=== PATIENT | female | born 1970 | race Caucasian/White ===

== ENCOUNTER 2017-11-09 22:05 | Emergency (ER) | payer MEDICAID ==
[2017-11-09 22:19] VITALS: BMI 29.9
[2017-11-09] MEDS ORDERED: NS 1000 ML 1,000 ML ONE (22:42)
[2017-11-09] MEDS ORDERED: ASPIRIN PO ONE (22:47)
[2017-11-09] MEDS ORDERED: NITROSTAT SL PRN (22:47)
--- NOTE | 2017-11-09 22:52 | DR.GENAD ---
HPI - PCP Primary Care Physician: Sonya Da Silva - Complaint/Symptoms Chief Complaint Doctors Comments: Patient is complaining of xiphoid chest pain, , dull headache with numbness in her right hand for the past three hours. Mother states she has been nauseated but no vomiting, cold, cough, fever or chills. States she has been taking her medicines for her blood pressure of Losartan 100mg and metoprolol 50mg. She denies blurred vision or any recent trauma. states she is a patient of Dr. Gonzalez's sister. Chief Complaint:: Patient's mother stated that patient's B/P has been high today. Patient told mother that something wasn't right. Patient stated that her head and mouth felt funny and her right arm is numb. Self Treatment fo Chief Complaint: Patient's mother stated that they just started patient on Cozaar 100mg po daily. Patient already taking Toprol XL 50mg po. - Nurses notes reviewed Nurses Notes Review: Yes - Source History Provided: Patient, Family Member - Mode of Arrival Mode of Arrival: Ambulatory - Timing Onset of Chief Complaint: 11/09/17 Came on: Gradually - Duration Duration: Constant How lon Duration: Hours - Location Location: xiphoid chest pain - Severity Severity: Moderate - Modifying Factors Worsens:: nothing Improves:: nothing PMH - PMH Past Medical History: Yes Past Medical History: Hypertension Past Surgical History: Yes Surgical History: Other Past Surgical History Comment: Hernia Repair - Family History History of Family Medical Conditions: Yes Family Medical History: Diabetes Mellitus, [place], Coronary Artery Disease, Sudden Cardiac , Hypertension - Social History Alcohol Use: None Do you use any recreational Drugs:: No Lives With: Family Lives Where: Home - infectious screening In the last 2 months have you had wt loss of >10#?: NO Have you had fever, night sweats or hemotysis?: No Have you traveled outside the country in the last 6 months?: No Isolation: Standard ROS - Review of Systems Constitutional: No Symptoms Reported. negative: See HPI, Chills, Diaphoresis, Fever, Malaise, Weakness, Irritable, Fatigue, Loss of Appetite, Other Eyes: No Symptoms Reported. negative: See HPI, Eye Pain, Blurred Vision, Tearing, Discharge, Photophobia, Diplopia, Other ENTM: No Symptoms Reported Respiratoy: No Symptoms Reported. negative: See HPI, Productive Cough, Non- Productive Cough, Moist Cough, Dry Cough, Hacking Cough, Barking Cough, Brassy Cough, Orthopnea, Short of Breath, Stridor, Wheezing, Hemoptysis, Other Cardiovascular: No Symptoms Reported, Chest Pain. negative: See HPI, Edema, Palpitations, Syncope, Cyanosis, Skin Mottling, Other Gastrointestinal/Abdominal: No Symptoms Reported, Nausea. negative: See HPI, Abdominal Pain, Constipation, Diarrhea, Vomiting, Food Intolerance, Other Genitourinary: No Symptoms Reported. negative: See HPI, Discharge, Dysuria, Frequency, Hematuria, Pain, Bleeding, Other Neurological: No Symptoms Reported, Headache, Paresthesia (right hand). negative: See HPI, Anxiety, Depressed, Emotional Problems, Numbness, Pre- existing Deficit, Seizure, Tingling, Tremors, Weakness, Dizziness, Problems Walking, Speech Problem, Other Musculoskeletal: No Symptoms Reported Integumentary: No Symptoms Reported. negative: See HPI, Change in Color, Change in Hair/Nails, Dryness, Lesions, Lumps, Rash, Itching, Wound, Bruises, Juandice, Other Hematologic/Lymphatic: No Symptoms Reported Endocrine: No Symptoms Reported Psychiatric: No Symptoms Reported PE - Vital Signs Vitals: Temperature 98.1 F Pulse Rate 83 Respiratory Rate 20 Blood Pressure 180/103 O2 Sat by Pulse Oximetry 100 - General Limitations: No Limitations General Appearance: Alert, In No Apparent Distress, In Distress (moderate) - Head Head Exam: Normal Inspection, Atraumatic, Normocephalic - Eyes Eye exam: Normal Appearance, PERRL, EOMI. negative: Scleral Icterus, Conjunctival Injection, Nystagmus, Miosis, Mydrasis, Periorbital Swelling, Periorbital Tenderness, Other - ENT ENT Exam: Normal Exam, Normal Oropharynx, Normal External Ear Exam, Mucous Membranes Moist, TM's Normal Bilaterally External Ear Exam: Normal External Inspection. negative: Auricular Hematoma, Auricular Trauma, Mastoid Tenderness, Pain with Movement, External Tenderness, Periauricular Adenopathy, Other TM/Canal Exam: Bilateral Normal Nose Exam: Normal Nose Exam Mouth Exam: Normal Inspection. negative: Drooling, Trismus, Lip Swelling, Tongue Elevation, Tongue Swelling, Laceration, Other Throat Exam: Normal Inspection - Neck Neck Exam: Normal Inspection, Full ROM, Trachea Midline - Chest Chest Inspection: Normal Inspection, Symmetric Chest Wall Rise - Respiratory Respiratory Exam: Normal Lung Sounds Bilat Respiratory Exam: Bilateral Clear to Auscultation - Cardiovascular Cardiovascular Exam: Regular Rate, Normal Rhythm, Normal Heart Sounds - Abdominal Exam Abdominal Exam: Normal Inspection, Normal Bowel Sounds, Soft Abdominal Tenderness: negative: RUQ, RLQ, LUQ, LLQ, Epigastrium, Suprapubic, Diffuse, Mild, Moderate, Severe, Other - Extremities Extremities Exam: Normal Inspection, Full ROM, Normal Capillary Refill. negative: Tenderness, Edema, Joint Swelling, Calf Tenderness, Other - Back Back Exam: Normal Inspection, Full ROM. negative: Tenderness, (R) CVA Tenderness, (L) CVA Tenderness, Muscle Spasm, Paraspinal Tenderness, Vertebral Tenderness, Rashes, (R) Sciatic Notch Tenderness, (L) Sciatic Notch Tendern, (R ) Straight Leg Raise, (L) Straight Leg Raise, Other - Neurologic Neurological Exam: Alert, Oriented X3, CN II-XII Intact, Reflexes Normal. negative: Normal Gait (gait not tested) - Psychiatric Psychiatric Exam: Normal Affect, Normal Mood - Skin Skin Exam: Warm, Dry, Intact, Normal Color ROR - Labs Reviewed Laboratory Results Reviewed?: Yes (All labs and x-ray results reviewed and discussed with patient) Result Diagrams: 11/09/17 23:55 11/09/17 23:55 Laboratory: WBC 5.7 X10^3/uL (3.6-10.0) 11/09/17 23:55 RBC 4.69 X10^6/uL (3.5-5.4) 11/09/17 23:55 Hgb 13.0 g/dL (12.0-16.0) 11/09/17 23:55 Hct 38.5 % (36.0-47.0) 11/09/17 23:55 MCV 82.1 fL (80.0-100.0) 11/09/17 23:55 MCH 27.8 pg (27.0-34.0) 11/09/17 23:55 MCHC 33.9 g/dL (33.0-35.0) 11/09/17 23:55 RDW 13.6 % (11.6-16.5) 11/09/17 23:55 Plt Count 314 X10^3/uL (150.0-450.0) 11/09/17 23:55 MPV 6.6 fL (7.4-11.0) L 11/09/17 23:55 Neut % 55.0 % (42.0-75.0) 11/09/17 23: Lymph % 29.8 % (21.0-51.0) 11/09/17 23:55 Sac % 11.3 % (0.0-13.0) 11/09/17 23:55 Eos % 3.2 % (0.9-2.9) H 11/09/17 23:55 Baso % 0.7 % (0.2-1.0) 11/09/17 23:55 Neut # 3.2 x10^3/uL (2.2-4.8) 11/09/17 23: Lymph # 1.7 X10^3/uL (1.3-2.9) 11/09/17 23:55 Sac # 0.6 x10^3/uL (0.3-0.8) 11/09/17 23:55 Eos # 0.2 x10^3/uL (0.0-0.2) 11/09/17 23:55 Baso # 0.0 X10^3/uL (0.0-0.1) 11/09/17 23: Absolute Nucleated RBC 0.1 /100WBC 11/09/17 23:55 INR Target Range - 11/09/17 23: INR 1.06 (0.8-1.3) 11/09/17 23:55 PTT 27.1 SECONDS (22.9-36.5) 11/09/17 23:55 PTT Comment - 11/09/17 23:55 D-Dimer 496 ng/mL (0-400) H* 11/09/17 23:55 Sodium 143 mmol/L (136-145) 11/09/17 23:55 Corrected Sodium TNP 11/09/17 23:55 Potassium 3.6 mmol/L (3.5-5.1) 11/09/17 23:55 Chloride 108 mmol/L (98-107) H 11/09/17 23:55 Carbon Dioxide 23.7 mmol/L (21-32) 11/09/17 23:55 BUN 14 mg/dL (7-18) 11/09/17 23:55 Creatinine 0.84 mg/dL (0.55-1.02) 11/09/17 23:55 Est GFR (MDRD) Af Amer > 60 (>60) 11/09/17 23:55 Est GFR (MDRD) Non-Af > 60 (>60) 11/09/17 23:55 Glucose 100 mg/dL (65-99) H 11/09/17 23:55 Calcium 8.8 mg/dL (8.5-10.1) 11/09/17 23:55 Corrected Calcium TNP 11/09/17 23:55 Magnesium 1.7 mg/dL (1.7-2.9) 11/09/17 23:55 Total Bilirubin 0.40 mg/dL (0.2-1.0) 11/09/17 23:55 AST 17 Units/L (15-37) 11/09/17 23:55 ALT 18 Units/L (12-78) 11/09/17 23:55 Alkaline Phosphatase 99 Units/L (46-116) 11/09/17 23:55 Creatine Kinase 56 Units/L (26-192) 11/10/17 01:32 CK-MB (CK-2) < 1.0 ng/mL (0-4.0) 11/10/17 01:32 CK/CKMB % Calc 1.8 % (<4) 11/10/17 01:32 Troponin I < 0.02 ng/mL (0-1.5) 11/10/17 01:32 Total Protein 7.2 g/dL (6.4-8.2) 11/09/17 23:55 Albumin 3.9 g/dL (3.4-5.0) 11/09/17 23:55 Globulin 3.3 g/dL (2.5-4.5) 11/09/17 23:55 Albumin/Globulin Ratio 1.2 Ratio (1.1-2.1) 11/09/17 23:55 - XRAY XRAY Interpreted by: Radiologist (CT head: NO acute intracranial hemorrhage) XRAY Findings: CXR: No acute cardiopulmonary afnormality - EKG Rate: 57 [place]: Normal Rhythm: NSR, SB Block: None Hypertrophy: None ST: Normal, Nonsp - Diagnosis Discharge Problem: Essential hypertension Chest pain Qualifiers: Chest pain type: unspecified Qualified Code(s): R07.9 - Chest pain, unspecified - Discharge Plan Disposition: 01 HOME, SELF-CARE Condition: Stable - Follow ups/Referrals Follow ups/Referrals: SONYA DA SILVA [Primary Care Provider] - 3 days - Instructions Instructions: Hypertension, [id number], Managing Your High Blood Pressure, Chest Pain Observation
[2017-11-09] MEDS ORDERED: ASPIRIN ONE (22:54)
[2017-11-09] MEDS ORDERED: CATAPRES TAB 0.2 MG PO ONE (22:54)
[2017-11-09] MEDS ORDERED: NS 1000 ML 1,000 ML IV SCH (23:00)
--- NOTE | 2017-11-09 23:03 | RAD ---
AP Chest Indication: Chest pain Comparison: None available Findings: The trachea is midline. The cardiac silhouette is unremarkable. The lungs are clear without focal i nfiltrate or effusion. The bony thorax is unremarkable. IMPRESSION: 1. No acute cardiopulmonary abnormality. Reported By:
[2017-11-09] MEDS ORDERED: CATAPRES TAB 0.2 MG ONE (23:13)
--- NOTE | 2017-11-10 00:14 | CT ---
CT brain without contrast Indication: Headache with right hand numbness Comparison: None available Technique: Multiple axial images of the brain were obtained from the skull base to the vertex without administra tion of IV contrast. Findings: No acute intraparenchymal hemorrhage or mass can be identified. No extra-axial fluid collections are seen. No alteration in the attenuation of the brain parenchyma can be identified to suggest acute o r subacute ischemic change. The ventricular system is symmetric and nondilated. The extracranial st ructures are grossly unremarkable. IMPRESSION: 1. No acute intracranial hemorrhage. Reported By:
[2017-11-10 00:18] LABS: BASOPHILS % (AUTO) 0.7 % (0.2-1.0); EOSINOPHILS # (AUTO) 0.2 x10^3/uL (0.0-0.2); EOSINOPHILS % (AUTO) 3.2 % (0.9-2.9); HEMATOCRIT 38.5 % (36.0-47.0); LYMPHOCYTES # (AUTO) 1.7 X10^3/uL (1.3-2.9); LYMPHOCYTES % (AUTO) 29.8 % (21.0-51.0); MEAN CORPUSCULAR HEMOGLOBIN 27.8 pg (27.0-34.0); MEAN CORPUSCULAR HGB CONC 33.9 g/dL (33.0-35.0); MEAN CORPUSCULAR VOLUME 82.1 fL (80.0-100.0); MEAN PLATELET VOLUME 6.6 fL (7.4-11.0); MONOCYTES # (AUTO) 0.6 x10^3/uL (0.3-0.8); MONOCYTES % (AUTO) 11.3 % (0.0-13.0); NEUTROPHILS # (AUTO) 3.2 x10^3/uL (2.2-4.8); PLATELET COUNT 314 X10^3/uL (150.0-450.0); RED BLOOD COUNT 4.69 X10^6/uL (3.5-5.4); RED CELL DISTRIBUTION WIDTH 13.6 % (11.6-16.5); WHITE BLOOD COUNT 5.7 X10^3/uL (3.6-10.0)
[2017-11-10 00:27] LABS: BLOOD UREA NITROGEN 14 mg/dL (7-18); CALCIUM 8.8 mg/dL (8.5-10.1); CARBON DIOXIDE 23.7 mmol/L (21-32); CHLORIDE 108 mmol/L (98-107); CREATININE 0.84 mg/dL (0.55-1.02); SODIUM 143 mmol/L (136-145); TROPONIN I < 0.02 ng/mL (0-1.5); eGFR BLACK RACES > 60 (>60); eGFR NON BLACK RACES > 60 (>60)
[2017-11-10 00:30] LABS: ALANINE AMINOTRANSFERASE 18 Units/L (12-78); ALBUMIN 3.9 g/dL (3.4-5.0); ALKALINE PHOSPHATASE 99 Units/L (46-116); ASPARTATE AMINO TRANSFERASE 17 Units/L (15-37); CKMB % 1.8 % (<4); CREATINE KINASE 56 Units/L (26-192); CREATINE KINASE MB < 1.0 ng/mL (0-4.0); MAGNESIUM 1.7 mg/dL (1.7-2.9); TOTAL PROTEIN 7.2 g/dL (6.4-8.2)
[2017-11-10 02:24] LABS: CREATINE KINASE MB < 1.0 ng/mL (0-4.0)
[2017-11-10 02:38] LABS: CKMB % 1.8 % (<4); CREATINE KINASE 56 Units/L (26-192); TROPONIN I < 0.02 ng/mL (0-1.5)
[2017-11-10 05:10] VITALS: BP 133/79
== END 2017-11-10 03:16 | disposition home or self-care (01) ==
LOC: ER 22:25
DX: R07.89 Other chest pain (principal); I10 Essential (primary) hypertension
CPT/HCPCS: 36415; 70450; 71045; 80053; 82550; 82553; 83735; 84484; 85025; 85378; 85610; 85730; 93005; 93010; 99283; A4222

== ENCOUNTER 2017-11-18 00:35 | Emergency (ER) | payer MEDICAID ==
[2017-11-18 00:43] VITALS: BMI 29.6
[2017-11-18] MEDS ORDERED: TORADOL 60 MG VIAL IM ONE (01:24)
--- NOTE | 2017-11-18 01:25 | DR.GENAD ---
HPI - PCP Primary Care Physician: anish gruber - HPI Comment HPI Comment: PATIENTS BP RECENTLY RUNNING HIGH. TONIGHT SHE HAD HEADACHE, BP CHECK, IT WAS HIGH. HERE FOR EVALUATION. TOOK HER MEDS PRESCRIBE. - Complaint/Symptoms Chief Complaint Doctors Comments: ELEVATED BP WITH HEADACHE TONIGHT. Chief Complaint:: Mother reports high blood pressure; taken blood pressure medications as prescribed. Mother reports blood pressure at home was 198/140. Patient reports headache. Patient is reporting numbness and tingling to mouth, weakness, and a generalized malaise. - Nurses notes reviewed Nurses Notes Review: Yes - Source History Provided: Parent - Mode of Arrival Mode of Arrival: Wheelchair - Timing Onset of Chief Complaint: 11/18/17 Came on: Suddenly - Duration Duration: Constant Duration: Days - Severity Severity: Moderate PMH - PMH Past Medical History: Yes Past Medical History: Hypertension Past Surgical History: Yes Surgical History: Other Past Surgical History Comment: Breast reduction; Hernia repair - Family History History of Family Medical Conditions: Yes Family Medical History: Diabetes Mellitus, [place], Coronary Artery Disease, Sudden Cardiac , Hypertension - Social History Type of Tobacco Use: None Alcohol Use: None Do you use any recreational Drugs:: No Lives With: Family Lives Where: Home - infectious screening In the last 2 months have you had wt loss of >10#?: NO Have you had fever, night sweats or hemotysis?: No Have you traveled outside the country in the last 6 months?: No Isolation: Standard ROS - Review of Systems Constitutional: No Symptoms Reported. negative: Chills, Fever, Weakness, Fatigue, Loss of Appetite Eyes: No Symptoms Reported. negative: Eye Pain, Discharge ENTM: negative: Ear Pain, Nose Discharge, Nose Congestion, Throat Pain Respiratoy: No Symptoms Reported Cardiovascular: No Symptoms Reported Gastrointestinal/Abdominal: No Symptoms Reported Genitourinary: No Symptoms Reported Neurological: Headache Musculoskeletal: No Symptoms Reported Integumentary: No Symptoms Reported Hematologic/Lymphatic: No Symptoms Reported Endocrine: No Symptoms Reported All Other Systems: Reviewed and Negative PE - Vital Signs Vitals: Temperature 98.2 F Pulse Rate [Left Brachial] 74 Pulse Rate 79 Respiratory Rate 22 Blood Pressure [Left Arm] 138/82 Blood Pressure 194/99 O2 Sat by Pulse Oximetry 96 - General Limitations: No Limitations General Appearance: Alert - Head Head Exam: Normal Inspection - Eyes Eye exam: Normal Appearance - ENT ENT Exam: Normal External Ear Exam External Ear Exam: Normal External Inspection TM/Canal Exam: Bilateral Normal Nose Exam: Normal Nose Exam Mouth Exam: Normal Inspection Throat Exam: Normal Inspection - Neck Neck Exam: Trachea Midline - Chest Chest Inspection: Symmetric Chest Wall Rise - Respiratory Respiratory Exam: Normal Lung Sounds Bilat Respiratory Exam: Bilateral Clear to Auscultation - Cardiovascular Cardiovascular Exam: Regular Rate, Normal Rhythm, Normal Heart Sounds - Abdominal Exam Abdominal Exam: Normal Bowel Sounds, Soft. negative: Tenderness - Extremities Extremities Exam: Normal Inspection - Back Back Exam: Normal Inspection - Neurologic Neurological Exam: Alert, Oriented X3 - Psychiatric Psychiatric Exam: Normal Affect, Normal Mood - Skin Skin Exam: Normal Color MDM - Additional Information Additional Information Obtained From: Family - Differential Diagnosis Differential Diagnosis: HTN, HEADACHE Course - Treatment Treatment: SEE ORDERS. - Education/Counseling Education/Counseling: Patient, Family, Education Educated On: Treatment, Diagnosis, Needs for Follow Up - Diagnosis Discharge Problem: Essential hypertension Headache Qualifiers: Headache type: unspecified Headache chronicity pattern: acute headache Intractability: intractable Qualified Code(s): R51 - Headache - Discharge Plan Disposition: 01 HOME, SELF-CARE Condition: Stable Prescriptions: Clonidine HCl [CATAPRES 0.1 MG TAB *] 0.1 mg PO DAILY PRN #30 tab PRN Reason: - Follow ups/Referrals Follow ups/Referrals: ANISH GRUBER [Primary Care Provider] - 3 days - Instructions Instructions: Hypertension, [id number], Managing Your High Blood Pressure Additional Instructions: RETURN TO ED IF WORSE. BP CHECK DAILY AND CHART AND TAKE TO YOUR DOCTOR.
[2017-11-18] MEDS ORDERED: TORADOL 60 MG VIAL ONE (01:27)
[2017-11-18] MEDS ORDERED: NIFEDIPINE CAP 10 MG PO ONE (02:16)
[2017-11-18] MEDS ORDERED: NIFEDIPINE CAP 10 MG ONE (02:17)
[2017-11-18 03:17] VITALS: BP 138/82
== END 2017-11-18 03:28 | disposition home or self-care (01) ==
LOC: ER 00:35
DX: I10 Essential (primary) hypertension (principal); R51 Headache
CPT/HCPCS: 96372; 99282; J1885

== ENCOUNTER 2019-08-25 12:46 | Inpatient (IN) ==
[2019-08-25 12:50] VITALS: BMI 28.3
[2019-08-25] MEDS ORDERED: NS 1/2 1000 ML IV 1,000 ML IV ONE (12:51)
--- NOTE | 2019-08-25 13:25 | DR.DIZZY ---
HPI Time seen Time Seen by Provider: 08/25/19 13:25 PCP Primary Care Physician: SELAM Complaint Chief Complaint:: PT. C/O NAUSEA, ABDOMINAL PAIN, DIZZINESS AND DARK URINE. Nurses Notes Reviewed Nurses Notes Review: Yes Source History Provided: Patient Mode of Arrival Mode of Arrival: Ambulatory Timing Onset of Chief Complaint: 08/24/19 PMH PMH Past Medical History: Yes Past Medical History: Hypertension Past Surgical History: Yes Surgical History: Other Family History History of Family Medical Conditions: Yes Family Medical History: Diabetes Mellitus, [place], Coronary Artery Disease, Sudden Cardiac and Hypertension Social History Does patient currently use any type of tobacco product: No Have you used tobacco products in the last 12 months: No Type of Tobacco Use: None Does any household member use tobacco: No Alcohol Use: None Do you use any recreational Drugs:: No Lives With: Mom Lives Where: Home infectious screening In the last 2 months have you had wt loss of >10#?: NO Have you had fever, night sweats or hemotysis?: No Have you traveled outside the country in the last 6 months?: No Isolation: Standard ROS Review of Systems Constitutional: No Symptoms Reported and See HPI Eyes: No Symptoms Reported and See HPI ENTM: No Symptoms Reported and See HPI Respiratoy: No Symptoms Reported and See HPI Cardiovascular: No Symptoms Reported and See HPI Gastrointestinal/Abdominal: No Symptoms Reported and See HPI Genitourinary: No Symptoms Reported and See HPI Neurological: No Symptoms Reported and See HPI Musculoskeletal: No Symptoms Reported and See HPI Integumentary: No Symptoms Reported and See HPI Hematologic/Lymphatic: No Symptoms Reported and See HPI Endocrine: No Symptoms Reported and See HPI Psychiatric: No Symptoms Reported and See HPI All Other Systems: Reviewed and Negative PE Vital Signs Vitals: Temperature 97.2 F Pulse Rate [Standing] 64 Pulse Rate [Sitting] 83 Pulse Rate [Lying] 78 Pulse Rate 87 Respiratory Rate 35 Blood Pressure [Left Arm] 138/82 Blood Pressure [Standing] 88/50 Blood Pressure [Sitting] 111/64 Blood Pressure [Lying] 105/61 Blood Pressure 94/62 O2 Sat by Pulse Oximetry 94 ROR Labs Reviewed Result Diagrams: 08/25/19 13:12 08/25/19 13:12 Laboratory: WBC 8.4 X10^3/uL (3.6-10.0) 08/25/19 13:12 RBC 4.82 X10^6/uL (3.5-5.4) 08/25/19 13:12 Hgb 13.6 g/dL (12.0-16.0) 08/25/19 13:12 Hct 40.4 % (36.0-47.0) 08/25/19 13:12 MCV 83.8 fL (80.0-100.0) 08/25/19 13:12 MCH 28.2 pg (27.0-34.0) 08/25/19 13:12 MCHC 33.7 g/dL (33.0-35.0) 08/25/19 13:12 RDW 13.3 % (11.6-16.5) 08/25/19 13:12 Plt Count 447 X10^3/uL (150.0-450.0) 08/25/19 13:12 MPV 7.2 fL (7.4-11.0) L 08/25/19 13:12 Neut % (Auto) 78.0 % (42.0-75.0) H 08/25/19 13:12 Lymph % (Auto) 14.0 % (21.0-51.0) L 08/25/19 13:12 [place] % (Auto) 4.9 % (0.0-13.0) 08/25/19 13:12 Eos % (Auto) 2.5 % (0.9-2.9) 08/25/19 13:12 Baso % (Auto) 0.6 % (0.2-1.0) 08/25/19 13:12 Neut # (Auto) 6.5 x10^3/uL (2.2-4.8) H 08/25/19 13:12 Lymph # (Auto) 1.2 X10^3/uL (1.3-2.9) L 08/25/19 13:12 [place] # (Auto) 0.4 x10^3/uL (0.3-0.8) 08/25/19 13:12 Eos # (Auto) 0.2 x10^3/uL (0.0-0.2) 08/25/19 13:12 Baso # (Auto) 0.0 X10^3/uL (0.0-0.1) 08/25/19 13:12 Absolute Nucleated RBC 0.0 /100WBC 08/25/19 13:12 Sodium 142 mmol/L (136-145) 08/25/19 13:12 Corrected Sodium TNP 08/25/19 13:12 Potassium 3.7 mmol/L (3.5-5.1) 08/25/19 13:12 Chloride 104 mmol/L (98-107) 08/25/19 13:12 Carbon Dioxide 25.4 mmol/L (21-32) 08/25/19 13:12 BUN 26 mg/dL (7-18) H 08/25/19 13:12 Creatinine 1.44 mg/dL (0.55-1.02) H 08/25/19 13:12 Est GFR (MDRD) Af Amer 50 (>60) L 08/25/19 13:12 Est GFR (MDRD) Non-Af 42 (>60) L 08/25/19 13:12 Glucose 106 mg/dL (65-99) H 08/25/19 13:12 Lactic Acid 2.5 mmol/L (0.4-2.0) H 08/25/19 13:12 Calcium 9.0 mg/dL (8.5-10.1) 08/25/19 13:12 Corrected Calcium 9.7 mg/dL (8.5-10.1) 08/25/19 13:12 Total Bilirubin 0.40 mg/dL (0.2-1.0) 08/25/19 13:12 AST 43 Units/L (15-37) H 08/25/19 13:12 ALT 24 Units/L (12-78) 08/25/19 13:12 Alkaline Phosphatase 118 Units/L (46-116) H 08/25/19 13:12 Creatine Kinase 23 Units/L (26-192) L 08/25/19 13:12 CK-MB (CK-2) < 1.0 ng/mL (0-4.0) 08/25/19 13:12 CK/CKMB % Calc 4.4 % (<4) 08/25/19 13:12 Troponin I < 0.02 ng/mL (0-1.5) 08/25/19 13:12 C-Reactive Protein 45.40 mg/L (0-3.0) H 08/25/19 13:12 Total Protein 8.0 g/dL (6.4-8.2) 08/25/19 13:12 Albumin 3.1 g/dL (3.4-5.0) L 08/25/19 13:12 Globulin 4.9 g/dL (2.5-4.5) H 08/25/19 13:12 Albumin/Globulin Ratio 0.6 Ratio (1.1-2.1) L 08/25/19 13:12 Amylase 77 Units/L (25-115) 08/25/19 13:12 Lipase 172 Units/L (73-393) 08/25/19 13:12 Specimen Type Clean catch urine 08/25/19 15:23 Urine Color Yellow (YELLOW) 08/25/19 15:23 Urine Appearance Clear (CLEAR) 08/25/19 15:23 Urine pH 6.0 (5.0 - 8.0) 08/25/19 15:23 Ur Specific [place] 1.020 (1.000-1.030) 08/25/19 15:23 Urine Protein 2+ (NEGATIVE) 08/25/19 15:23 Urine Glucose (UA) Negative (NEGATIVE) 08/25/19 15:23 Urine Ketones Negative (NEGATIVE) 08/25/19 15:23 Urine Occult Blood Negative (NEGATIVE) 08/25/19 15:23 Urine Nitrite Negative (NEGATIVE) 08/25/19 15:23 Urine Bilirubin Negative (NEGATIVE) 08/25/19 15:23 Urine Urobilinogen Normal (NORMAL) 08/25/19 15:23 Ur Leukocyte Esterase Negative (NEGATIVE) 08/25/19 15:23 Urine RBC None seen /HPF (0-3) 08/25/19 15:23 Urine WBC 0-2 /HPF (0-5) 08/25/19 15:23 Ur Squamous Epith Cells Few /HPF (NEGATIVE) 08/25/19 15:23 Amorphous Sediment 1+ /HPF (NEGATIVE) 08/25/19 15:23 Urine Bacteria Trace /HPF (NEGATIVE) 08/25/19 15:23 Ur Culture Indicated? No/not indicated 08/25/19 15:23 Opioid Opioid Risk Tool Age (Johnny box if 16-45): No History of Preadolescent Sexual Abuse: No Total: 0 Total Score Risk Category: Low Risk Copyright: Kanu CASTANEDA predicting aberrant behaviors
[2019-08-25] MEDS ORDERED: NS 1000 ML 1,000 ML IV ONE ×2 (14:02→15:04)
[2019-08-25 14:13] LABS: BASOPHILS % (AUTO) 0.6 % (0.2-1.0); EOSINOPHILS # (AUTO) 0.2 x10^3/uL (0.0-0.2); EOSINOPHILS % (AUTO) 2.5 % (0.9-2.9); HEMATOCRIT 40.4 % (36.0-47.0); HEMOGLOBIN 13.6 g/dL (12.0-16.0); LYMPHOCYTES # (AUTO) 1.2 X10^3/uL (1.3-2.9); MEAN CORPUSCULAR HEMOGLOBIN 28.2 pg (27.0-34.0); MEAN CORPUSCULAR HGB CONC 33.7 g/dL (33.0-35.0); MEAN CORPUSCULAR VOLUME 83.8 fL (80.0-100.0); MEAN PLATELET VOLUME 7.2 fL (7.4-11.0); MONOCYTES # (AUTO) 0.4 x10^3/uL (0.3-0.8); MONOCYTES % (AUTO) 4.9 % (0.0-13.0); NEUTROPHILS # (AUTO) 6.5 x10^3/uL (2.2-4.8); PLATELET COUNT 447 X10^3/uL (150.0-450.0); RED BLOOD COUNT 4.82 X10^6/uL (3.5-5.4); RED CELL DISTRIBUTION WIDTH 13.3 % (11.6-16.5); WHITE BLOOD COUNT 8.4 X10^3/uL (3.6-10.0)
[2019-08-25 14:33] LABS: ALANINE AMINOTRANSFERASE 24 Units/L (12-78); ALBUMIN 3.1 g/dL (3.4-5.0); ALKALINE PHOSPHATASE 118 Units/L (46-116); AMYLASE 77 Units/L (25-115); ASPARTATE AMINO TRANSFERASE 43 Units/L (15-37); BLOOD UREA NITROGEN 26 mg/dL (7-18); CARBON DIOXIDE 25.4 mmol/L (21-32); CHLORIDE 104 mmol/L (98-107); CKMB % 4.4 % (<4); COR CA(FOR HYPOALB) 9.7 mg/dL (8.5-10.1); CREATINE KINASE 23 Units/L (26-192); CREATINE KINASE MB < 1.0 ng/mL (0-4.0); CREATININE 1.44 mg/dL (0.55-1.02); LIPASE 172 Units/L (73-393); SODIUM 142 mmol/L (136-145); TROPONIN I < 0.02 ng/mL (0-1.5); eGFR NON BLACK RACES 42 (>60)
[2019-08-25 14:58] LABS: LACTIC ACID 2.5 mmol/L (0.4-2.0)
[2019-08-25] MEDS ORDERED: NS 1000 ML 1,000 ML ONE (15:04)
[2019-08-25 15:35] LABS: BILIRUBIN,URINE NEGATIVE (NEGATIVE); BLOOD/HEMOGLOBIN,URINE NEGATIVE (NEGATIVE); GLUCOSE, URINE NEGATIVE (NEGATIVE); KETONES,URINE NEGATIVE (NEGATIVE); LEUKOCYTE ESTERASE ,URINE NEGATIVE (NEGATIVE); NITRITES,URINE NEGATIVE (NEGATIVE); PROTEIN,URINE 2+ (NEGATIVE); UROBILINOGEN,URINE NORMAL (NORMAL)
[2019-08-25 15:42] LABS: AMORPHOUS SEDIMENT,UR 1+ /HPF (NEGATIVE); APPEARANCE,URINE CLEAR (CLEAR); BACTERIA,URINE TRACE /HPF (NEGATIVE); COLOR,URINE YELLOW (YELLOW); RBC,URINE NONE SEEN /HPF (0-3); SQUAMOUS EPITHELIAL CELL,UR FEW /HPF (NEGATIVE)
[2019-08-25] MEDS ORDERED: ROCEPHIN VIAL 1 GRAM IVP ONE (17:29)
[2019-08-25] MEDS ORDERED: ROCEPHIN VIAL 1 GRAM ONE (17:43)
--- NOTE | 2019-08-25 17:57 | CT ---
CT abdomen and pelvis without contrast Indication: Acute epigastric pain Comparison: None available Technique: Multiple axial images of the abdomen and pelvis were obtained from the lung bases to the pubic symphysis without the administration of IV contrast. Coronal and sagittal reformatted images were also provided. Dose reduction techniques including automated exposure control (AEC) and adjustment of mA and kV were utilized. Findings: Overall sensitivity in detection of solid organ injury, mass or inflammatory change along with vascular injury or mesenteric hematoma is severely limited given lack of IV contrast administration. The lung bases demonstrate ground-glass opacities within the left lower lobe on axial image 1suspicious for developing1 infiltrate. Given limitations of a noncontrast examination no focal hepatic lesion is identified. The gallbladder, bile ducts, spleen, pancreas and adrenal glands are normal. Neither kidney demonstrates evidence of nephrolithiasis, hydronephrosis or mass. Upper GI tract demonstrates no evidence of mass or obstruction. Urinary bladder is normal. The uterus contains a large exophytic fibroid projecting from the anterior lower uterine segment. No adnexal mass. The rectum and colon are normal. The appendix is normal. No pelvic free fluid or adenopathy. Abdominal aorta is normal in caliber. Review of bone windows demonstrates no acute osseous abnormality. Impression: 1.No acute inflammatory process identified within the abdomen or pelvis given limitations of a noncontrast examination. 2. Hazy opacity within the left lower lobe, clinical correlation is needed as a developing infiltrate in this location is not excluded. 3. Large fibroid projecting from the anterior wall the lower uterine segment. 4.Additional incidental, nonacute findings as described above. IMPRESSION: Reported By:
[2019-08-25] MEDS: DUONEB 0.5 MG/3 MG NEB SCH ×2 (18:25→20:33)
[2019-08-25] MEDS ORDERED: SALINE 3% 15 ML NEB TX NEB ONE (18:25)
[2019-08-25] MEDS ORDERED: COLACE CAP 100 MG PO PRN (19:49)
[2019-08-25] MEDS: ZITHROMAX INJ 500 MG VIAL 250 MG in D5W 250 ML IV 250 ML IV SCH (20:00)
[2019-08-25] MEDS: NS 1000 ML 1,000 ML IV SCH (20:45)
[2019-08-25 23:19] LABS: CKMB % 4.8 % (<4); CREATINE KINASE 21 Units/L (26-192); CREATINE KINASE MB < 1.0 ng/mL (0-4.0); TROPONIN I < 0.02 ng/mL (0-1.5)
[2019-08-26 06:12] LABS: BASOPHILS % (AUTO) 0.5 % (0.2-1.0); EOSINOPHILS # (AUTO) 0.1 x10^3/uL (0.0-0.2); EOSINOPHILS % (AUTO) 1.3 % (0.9-2.9); HEMATOCRIT 35.9 % (36.0-47.0); LYMPHOCYTES # (AUTO) 1.1 X10^3/uL (1.3-2.9); LYMPHOCYTES % (AUTO) 12.3 % (21.0-51.0); MEAN CORPUSCULAR HEMOGLOBIN 28.2 pg (27.0-34.0); MEAN CORPUSCULAR HGB CONC 33.5 g/dL (33.0-35.0); MEAN CORPUSCULAR VOLUME 84.3 fL (80.0-100.0); MEAN PLATELET VOLUME 6.6 fL (7.4-11.0); MONOCYTES # (AUTO) 0.4 x10^3/uL (0.3-0.8); MONOCYTES % (AUTO) 3.8 % (0.0-13.0); NEUTROPHILS # (AUTO) 7.6 x10^3/uL (2.2-4.8); NEUTROPHILS % (AUTO) 82.1 % (42.0-75.0); PLATELET COUNT 416 X10^3/uL (150.0-450.0); RED BLOOD COUNT 4.25 X10^6/uL (3.5-5.4); RED CELL DISTRIBUTION WIDTH 13.5 % (11.6-16.5); WHITE BLOOD COUNT 9.3 X10^3/uL (3.6-10.0)
[2019-08-26 06:26] LABS: LACTIC ACID 2.1 mmol/L (0.4-2.0)
[2019-08-26 06:37] LABS: ALANINE AMINOTRANSFERASE 17 Units/L (12-78); ALBUMIN 2.6 g/dL (3.4-5.0); ALKALINE PHOSPHATASE 97 Units/L (46-116); ASPARTATE AMINO TRANSFERASE 44 Units/L (15-37); BLOOD UREA NITROGEN 16 mg/dL (7-18); CALCIUM 7.5 mg/dL (8.5-10.1); CARBON DIOXIDE 23.3 mmol/L (21-32); CHLORIDE 107 mmol/L (98-107); CKMB % 3.9 % (<4); COR CA(FOR HYPOALB) 8.6 mg/dL (8.5-10.1); CREATINE KINASE 26 Units/L (26-192); CREATINE KINASE MB < 1.0 ng/mL (0-4.0); CREATININE 1.17 mg/dL (0.55-1.02); MAGNESIUM 1.5 mg/dL (1.7-2.9); SODIUM 143 mmol/L (136-145); TOTAL PROTEIN 6.6 g/dL (6.4-8.2); TROPONIN I < 0.02 ng/mL (0-1.5); eGFR NON BLACK RACES 53 (>60)
[2019-08-26] MEDS ORDERED: K-RIDER 10 MEQ/NS 100 ML 10 MEQ/100 ML BAG IV PRN (06:45)
[2019-08-26] MEDS ORDERED: POTASSIUM CHLORIDE LIQ 20 MEQ UDC PO PRN (06:45)
[2019-08-26] MEDS ORDERED: POTASSIUM CHL 60 MEQ/NS 0.45% 500 ML IV PRN (06:45)
[2019-08-26] MEDS ORDERED: POTASSIUM CHL 40 MEQ/NS 0.45% 500 ML IV PRN (06:45)
--- NOTE | 2019-08-26 06:52 | RAD ---
HISTORY: Chest pain Study: Single view chest Comparison: 11/09/2017 Findings: Lung volumes are reduced. No infiltrate, effusion or pneumothorax identified. The cardiac and mediastinal contours are within normal limits. The soft tissues are unremarkable. IMPRESSION: 1. No acute cardiopulmonary abnormality. Reported By:
[2019-08-26] MEDS: ROCEPHIN VIAL 1 GRAM 1 G in NS 100 ML IV + SPIKE MINIBAG* 100 ML IV SCH (09:52)
[2019-08-26] MEDS: NS 1000 ML 1,000 ML IV SCH ×2 (10:01→20:40)
[2019-08-26] MEDS ORDERED: PHENERGAN TAB 25 MG PO PRN (11:01)
[2019-08-26] MEDS: ZITHROMAX INJ 500 MG VIAL 250 MG in D5W 250 ML IV 250 ML IV SCH (11:53)
[2019-08-26] MEDS: ZANTAC PO SCH ×2 (12:00→20:40)
--- NOTE | 2019-08-26 12:21 | DR.H&P ---
H&P - History & Physical for Day of: H&P Date: 08/25/19 - Chief Complaint Chief Complaint: NAUSEA, ABDOMINAL PAIN, DARK URINE, SHORTNESS OF BREATH, AND DIZZINESS - History of Present Illness History of Present Illness: IS A 48 YEAR OLD PATIENT OF OURS WHO PRESENTED TO THE ER WITH COMPLAINTS OF NAUSEA, ABDOMINAL PAIN, DARK URINE, SHORTNESS OF BREATH, AND DIZZINESS. SYMPTOMS REPORTEDLY STARTED ONE DAY PRIOR. SHE HAS BEEN TAKING CEFDINIR 300MG PO BID AT HOME SINCE 08/20 FOR BRONCHITIS. FAMILY REPORTS THAT SHE HAD AN OUTPATIENT ULTRASOUND OF THE NECK DUE TO RIGHT SIDED LYMPHADENOPATHY. RESULTS REVEALED AN ENLARGED RIGHT CERVIAL LYMPH NODE AND BILATERAL PARTIALLY CALCIFIED THYROID NODULES. ON ARRIVAL TO THE ER, VITALS WERE 97.2-102-22-95%-85/51. LABS WERE OBTAINED. ABNORMAL LAB VALUES INCLUDE THE FOLLOWING: BUN 26, CREATININE 1.44, GLUCOSE 106, LACTIC ACID 2.5, AST 43, ALK PHOS 118, CREATINE KINASE 23, CRP 45.40, ALBUMIN 3.1, GLOBULIN 4.9. URINALYSIS REVEALED WBC 0-2 WITH TRACE BACTERIA. BLOOD CLUTURES OBTAINED. AN ABDOMEN/PELVIS CT WITH CONTRAST WAS OBTAINED AND REVEALED: No acute inflammatory process identified within the abdomen or pelvis given limitations of a non-contrast examination. Hazy opacity within the left lower lobe, clinical correlation is needed as a developing infiltrate in this location is not excluded. Large fibroid projecting from the anterior wall the lower uterine segment. AN EKG REVEALED: SINUS RHYTHM WITH HR 87. SHE WAS GIVEN A NORMAL SALINE BOLUS X 2 AND GIVEN ROCEPHIN 1G IV X 1. SHE WAS ADMITTED FOR FURTHER EVALUATION AND TREATMENT OF HYPOTENSION, DIZZINESS, ABDOMINAL PAIN, AND BRONCHITIS. SHE WAS STARTED ON AZITHROMYCIN 250MG IV DAILY, ROCEPHIN 1G IV DAILY, RESPIRATORY TX, AND NS AT 150ML/HR. WE WILL FOLLOW UP WITH AM LABS AND CHEST XRAY AND CONTINUE TO MONITOR. - Past Medical History Past Medical History: Hypertension - Past Surgical History Surgical History: Other (EYE SURGERY, EAR SURGERY, HERNIA REPAIR, BREAST REDUCTION ) - Family History Family Medical History: Diabetes Mellitus, [place], Coronary Artery Disease, Sudden Cardiac , Hypertension - Social History Does patient currently use any type of tobacco product: No Have you used tobacco products in the last 12 months: No Type of Tobacco Use: None Does any household member use tobacco: No Alcohol Use: None Drug Use: None - Medications Home Medications: bacitracin Allergy (Verified 11/18/17 01:15) ciprofloxacin [From Cipro] Allergy (Verified 11/09/17 22:21) codeine Allergy (Verified 11/18/17 01:15) levofloxacin [From Levaquin] Allergy (Verified 11/18/17 01:15) montelukast [From Singulair] Allergy (Verified 11/18/17 01:15) neomycin Allergy (Verified 11/18/17 01:15) polymyxin B Allergy (Verified 11/18/17 01:15) sulfamethoxazole [From Bactrim] Allergy (Verified 11/18/17 01:15) trimethoprim [From Bactrim] Allergy (Verified 11/18/17 01:15) Wasp Venom Protein Allergy (Uncoded 11/18/17 01:15) CONTINUE taking the following medications cetirizine 10 mg PO HS 08/26/19 [History] losartan-hydrochlorothiazide 1 tab PO DAILY 08/26/19 [History] metoprolol succinate 50 mg PO HS 08/26/19 [History] promethazine 25 mg PO Q4-6H PRN 08/26/19 [History] ranitidine HCl 150 mg PO BID 08/26/19 [History] - Review of Systems Constitutional: Weakness Eyes: No Symptoms Reported ENT: No Symptoms Reported Respiratory: Cough, Shortness of Breath Cardiovascular: Light Headedness Gastrointestinal: Nausea, Abdominal Pain Genitourinary: No Symptoms Reported Musculoskeletal: No Symptoms Reported Skin: No Symptoms Reported Neurological: Weakness - Physical Exam Vital Signs: Temperature 99.0 F Pulse Rate [Apical] 101 Pulse Rate [Standing] 64 Pulse Rate [Sitting] 83 Pulse Rate [Lying] 78 Pulse Rate 101 Respiratory Rate 24 Blood Pressure [Left Arm] 108/62 Blood Pressure [Standing] 88/50 Blood Pressure [Sitting] 111/64 Blood Pressure [Lying] 105/61 Blood Pressure 115/64 O2 Sat by Pulse Oximetry 96 Oriented: Normal Eyes: Normal Ear: Normal Nose: Normal Throat: Normal Respiratory: Diminished Throughout Cardiovascular: Normal : Normal Auscultation: Bowel Sounds: Normal Palpation: Normal Tenderness: Diffuse, Mild Skin: Normal Musculoskeletal: Normal Psychiatric: Normal Mood Description: Calm Affect: Normal Speech Pattern: Clear - Assessment/Plan (1) Abdominal pain Qualifiers: Abdominal location: generalized Qualified Code(s): R10.84 - Generalized abdominal pain Status: Acute (2) Bronchitis Status: Acute Plan: IV ANTIBIOTICS, RESPIRATORY TX, CONTINUE TO MONITOR (3) Hypotension Qualifiers: Hypotension type: unspecified hypotension type Qualified Code(s): I95.9 - Hypotension, unspecified Status: Acute Plan: IV FLUIDS, CONTINUE TO MONITOR (4) Near syncope Status: Acute - Allergies Allergies/Adverse Reactions: Allergies Allergy/AdvReac Type Severity Reaction Status Date / Time bacitracin Allergy Verified 11/18/17 01:15 ciprofloxacin [From Cipro] Allergy Verified 11/09/17 22:21 codeine Allergy Verified 11/18/17 01:15 levofloxacin [From Levaquin] Allergy Verified 11/18/17 01:15 montelukast [From Singulair] Allergy Verified 11/18/17 01:15 neomycin Allergy Verified 11/18/17 01:15 polymyxin B Allergy Verified 11/18/17 01:15 sulfamethoxazole Allergy Verified 11/18/17 01:15 [From Bactrim] trimethoprim [From Bactrim] Allergy Verified 11/18/17 01:15 Wasp Venom Protein Allergy Uncoded 11/18/17 01:15
--- NOTE | 2019-08-26 15:57 | US ---
History: Enlarged thyroid Study: Ultrasound of the thyroid Comparison: None Findings: The right lobe measures 3.94 x 1.7 x 1.3 cm. The left lobe measures 4.1 x 1.43 x 1.31 cm. The isthmus measures 2.8 mm thickness. No adenopathy is demonstrated. There are 2 heterogeneous solid right thyroid nodules centrally with the largest measuring 1.7 x 0.81 x 0.56 cm and the other measuring 7.5 x 3.4 x 6.6 mm. There is specular echoes within these nodules suggesting calcification. There is a left thyroid nodule with calcifications inferiorly measuring 1.5 x 0.71 x 1.05 cm. There is some vascularity in this lesion. There is no adenopathy demonstrated. Impression: Normal overall sized thyroid gland with bilateral solid nodules with coarse calcification. Recommend six-month follow-up. Reported By:
[2019-08-26] MEDS: TYLENOL 325 MG TAB PO PRN (19:38)
[2019-08-26] MEDS: MICRO K EXTEN CAP 10 MEQ PO PRN (20:41)
[2019-08-26] MEDS: ZyrTEC TAB 10 MG PO SCH (20:41)
[2019-08-26] MEDS: MAGNESIUM SULFATE 1 GRAM/100 mL PREMIX 1 GM/100 ML BAG IV PRN ×2 (20:41→21:57)
[2019-08-26] MEDS: DUONEB 0.5 MG/3 MG NEB PRN (21:08)
[2019-08-27] MEDS: NS 1000 ML 1,000 ML IV SCH ×3 (00:31→22:59)
[2019-08-27] MEDS: DUONEB 0.5 MG/3 MG NEB PRN ×2 (05:50→21:30)
[2019-08-27 06:06] LABS: BASOPHILS % (AUTO) 0.2 % (0.2-1.0); EOSINOPHILS # (AUTO) 0.1 x10^3/uL (0.0-0.2); EOSINOPHILS % (AUTO) 1.3 % (0.9-2.9); HEMATOCRIT 36.2 % (36.0-47.0); HEMOGLOBIN 12.1 g/dL (12.0-16.0); LYMPHOCYTES # (AUTO) 0.9 X10^3/uL (1.3-2.9); LYMPHOCYTES % (AUTO) 10.5 % (21.0-51.0); MEAN CORPUSCULAR HEMOGLOBIN 28.2 pg (27.0-34.0); MEAN CORPUSCULAR HGB CONC 33.5 g/dL (33.0-35.0); MEAN CORPUSCULAR VOLUME 84.1 fL (80.0-100.0); MEAN PLATELET VOLUME 6.4 fL (7.4-11.0); MONOCYTES # (AUTO) 0.3 x10^3/uL (0.3-0.8); NEUTROPHILS # (AUTO) 7.2 x10^3/uL (2.2-4.8); PLATELET COUNT 455 X10^3/uL (150.0-450.0); RED CELL DISTRIBUTION WIDTH 13.6 % (11.6-16.5); WHITE BLOOD COUNT 8.5 X10^3/uL (3.6-10.0)
[2019-08-27 06:17] LABS: ALANINE AMINOTRANSFERASE 14 Units/L (12-78); ALBUMIN 2.4 g/dL (3.4-5.0); ALKALINE PHOSPHATASE 101 Units/L (46-116); ASPARTATE AMINO TRANSFERASE 40 Units/L (15-37); BLOOD UREA NITROGEN 7 mg/dL (7-18); CALCIUM 7.5 mg/dL (8.5-10.1); CHLORIDE 110 mmol/L (98-107); COR CA(FOR HYPOALB) 8.8 mg/dL (8.5-10.1); CREATININE 0.92 mg/dL (0.55-1.02); MAGNESIUM 2.3 mg/dL (1.7-2.9); SODIUM 143 mmol/L (136-145); TOTAL PROTEIN 6.6 g/dL (6.4-8.2); eGFR NON BLACK RACES > 60 (>60)
[2019-08-27] MEDS: K-DUR TAB 20 MEQ PO PRN (07:14)
[2019-08-27] MEDS: TYLENOL 325 MG TAB PO PRN (07:23)
--- NOTE | 2019-08-27 08:00 | CT ---
HISTORY: Thyroid nodules Study: CT soft tissue neck with contrast Comparison: None Technique: Multiple images of the neck were obtained after the administration of IV contrast. Dose reduction techniques including Automated Exposure Control (AEC) and adjustment of mA and kV were utilized. Findings: The visualized intracranial structures appear normal. The skull base and cervical spine are intact. The facial bones appear grossly intact. The visualized paranasal sinuses and mastoid air cells are clear. There are bilateral ground-glass infiltrates visualized in the upper lung zones. The aerodigestive structures appear normal. The prevertebral soft tissues and paraspinal soft tissues are unremarkable. The epiglottis and laryngeal structures appear normal. There are mildly enlarged bilateral supraclavicular and mediastinal lymph nodes present. The largest left supraclavicular lymph node measures 2.6 x 1.1 cm. Largest anterior mediastinal node measures 1.4 x 0.9 cm. Largest right paratracheal node measures 1 x 1 cm. No evidence of abscess. The carotid, parotid, parapharyngeal, wellness trainer, and retropharyngeal spaces appear normal. The pharyngeal mucosal surfaces appear grossly normal. Thyroid gland is normal in size with small bilateral hypodense nodules that are better characterized by ultrasound. Carotid bifurcations appear normal. IMPRESSION: 1. Mildly enlarged bilateral supraclavicular and mediastinal lymph nodes as described of uncertain etiology. 2. Bilateral upper lobe ground-glass lung infiltrates. 3. Normal sized thyroid gland with small bilateral nodules as described on ultrasound just 1 day prior. Reported By:
[2019-08-27] MEDS: ROCEPHIN VIAL 1 GRAM 1 G in NS 100 ML IV + SPIKE MINIBAG* 100 ML IV SCH (08:41)
[2019-08-27] MEDS: ZANTAC PO SCH ×2 (08:42→20:40)
[2019-08-27] MEDS: ZITHROMAX INJ 500 MG VIAL 250 MG in D5W 250 ML IV 250 ML IV SCH (09:22)
[2019-08-27 10:32] LABS: ABG ALLEN TEST POS; ABG BASE EXCESS -2.2 mmol/L (-2.0-2.0); ABG HCO3 20.4 mmol/L (22-26)
[2019-08-27] MEDS ORDERED: SALINE 3% 15 ML NEB TX NEB ONE (10:42)
[2019-08-27] MEDS: ZOSYN VIAL 4.5 GRAMS 4.5 G in NS 100 ML IV + SPIKE MINIBAG* 100 ML IV SCH ×3 (11:01→22:59)
[2019-08-27] MEDS: ZOVIRAX TOP SCH ×2 (11:01→17:26)
[2019-08-27] MEDS: SOLU-Medrol 40 MG VIAL IVP SCH ×3 (11:02→22:59)
[2019-08-27] MEDS: ZyrTEC TAB 10 MG PO SCH (20:40)
[2019-08-28] MEDS: ZOVIRAX TOP SCH ×3 (02:10→17:27)
[2019-08-28] MEDS: NS 1000 ML 1,000 ML IV SCH ×3 (05:15→23:38)
[2019-08-28] MEDS: ZOSYN VIAL 4.5 GRAMS 4.5 G in NS 100 ML IV + SPIKE MINIBAG* 100 ML IV SCH ×3 (05:54→21:01)
[2019-08-28] MEDS: SOLU-Medrol 40 MG VIAL IVP SCH ×3 (05:54→21:01)
[2019-08-28 06:23] LABS: BASOPHILS % (AUTO) 0.2 % (0.2-1.0); HEMATOCRIT 32.7 % (36.0-47.0); LYMPHOCYTES # (AUTO) 0.6 X10^3/uL (1.3-2.9); MEAN CORPUSCULAR HEMOGLOBIN 28.2 pg (27.0-34.0); MEAN CORPUSCULAR HGB CONC 33.6 g/dL (33.0-35.0); MEAN CORPUSCULAR VOLUME 83.9 fL (80.0-100.0); MEAN PLATELET VOLUME 6.5 fL (7.4-11.0); MONOCYTES # (AUTO) 0.1 x10^3/uL (0.3-0.8); MONOCYTES % (AUTO) 2.4 % (0.0-13.0); NEUTROPHILS % (AUTO) 85.4 % (42.0-75.0); PLATELET COUNT 432 X10^3/uL (150.0-450.0); RED CELL DISTRIBUTION WIDTH 13.6 % (11.6-16.5); WHITE BLOOD COUNT 4.6 X10^3/uL (3.6-10.0)
[2019-08-28 06:37] LABS: ALANINE AMINOTRANSFERASE 16 Units/L (12-78); ALBUMIN 2.2 g/dL (3.4-5.0); ALKALINE PHOSPHATASE 89 Units/L (46-116); ASPARTATE AMINO TRANSFERASE 42 Units/L (15-37); BLOOD UREA NITROGEN 12 mg/dL (7-18); CALCIUM 7.2 mg/dL (8.5-10.1); CARBON DIOXIDE 21.6 mmol/L (21-32); CHLORIDE 114 mmol/L (98-107); COR CA(FOR HYPOALB) 8.6 mg/dL (8.5-10.1); COR NA(FOR HYPERGLY) 147 mmol/L (136-145); CREATININE 0.89 mg/dL (0.55-1.02); SODIUM 146 mmol/L (136-145); TOTAL PROTEIN 6.5 g/dL (6.4-8.2); eGFR NON BLACK RACES > 60 (>60)
[2019-08-28] MEDS ORDERED: FLONASE NASAL SPRAY ENOSTRIL ONE (09:11)
[2019-08-28] MEDS: ZANTAC PO SCH ×2 (09:20→20:47)
[2019-08-28] MEDS: FLONASE NASAL SPRAY ENOSTRIL SCH (09:20)
--- NOTE | 2019-08-28 09:49 | CT ---
CT facial bones without contrast Indication: Headache with fever Comparison: None available Technique: Multiple axial images of the facial structures were obtained from the mandible to superior portions of the orbits. Dose reduction techniques including automated exposure control (AEC) and adjustment of mA and kV were utilized. Findings: The visualized paranasal sinuses appear unremarkable without significant mucosal thickening or air-fluid levels. The mandible as well as the surrounding bony structures appear unremarkable. The visualized portions of the orbits as well as the globe within the right and left orbit are unremarkable in their CT appearance. IMPRESSION: Negative exam. Reported By:
[2019-08-28] MEDS: DUONEB 0.5 MG/3 MG NEB PRN (12:10)
[2019-08-28] MEDS: ZyrTEC TAB 10 MG PO SCH (20:47)
[2019-08-29] MEDS: ZOVIRAX TOP SCH ×3 (02:09→18:00)
[2019-08-29] MEDS: NS 1000 ML 1,000 ML IV SCH (02:10)
[2019-08-29] MEDS: SOLU-Medrol 40 MG VIAL IVP SCH (05:13)
[2019-08-29] MEDS: ZOSYN VIAL 4.5 GRAMS 4.5 G in NS 100 ML IV + SPIKE MINIBAG* 100 ML IV SCH ×3 (05:13→21:09)
[2019-08-29 05:23] LABS: BASOPHILS % (AUTO) 0.4 % (0.2-1.0); HEMATOCRIT 31.6 % (36.0-47.0); HEMOGLOBIN 10.6 g/dL (12.0-16.0); LYMPHOCYTES # (AUTO) 0.8 X10^3/uL (1.3-2.9); MEAN CORPUSCULAR HEMOGLOBIN 28.2 pg (27.0-34.0); MEAN CORPUSCULAR HGB CONC 33.6 g/dL (33.0-35.0); MEAN PLATELET VOLUME 6.6 fL (7.4-11.0); MONOCYTES # (AUTO) 0.4 x10^3/uL (0.3-0.8); MONOCYTES % (AUTO) 3.3 % (0.0-13.0); NEUTROPHILS # (AUTO) 11.6 x10^3/uL (2.2-4.8); NEUTROPHILS % (AUTO) 90.3 % (42.0-75.0); PLATELET COUNT 545 X10^3/uL (150.0-450.0); RED BLOOD COUNT 3.76 X10^6/uL (3.5-5.4); RED CELL DISTRIBUTION WIDTH 13.8 % (11.6-16.5); WHITE BLOOD COUNT 12.8 X10^3/uL (3.6-10.0)
[2019-08-29 05:33] LABS: ALANINE AMINOTRANSFERASE 16 Units/L (12-78); ALBUMIN 2.1 g/dL (3.4-5.0); ALKALINE PHOSPHATASE 76 Units/L (46-116); ASPARTATE AMINO TRANSFERASE 36 Units/L (15-37); BLOOD UREA NITROGEN 13 mg/dL (7-18); CALCIUM 6.8 mg/dL (8.5-10.1); CARBON DIOXIDE 19.5 mmol/L (21-32); COR CA(FOR HYPOALB) 8.3 mg/dL (8.5-10.1); COR NA(FOR HYPERGLY) 150 mmol/L (136-145); CREATININE 0.91 mg/dL (0.55-1.02); eGFR NON BLACK RACES > 60 (>60)
[2019-08-29 05:34] LABS: PLATELET MORPHOLOGY COMMENT NORMAL (NORMAL)
[2019-08-29 05:36] LABS: CHLORIDE 119 mmol/L (98-107); SODIUM 150 mmol/L (136-145)
[2019-08-29] MEDS: KLOR-CON PO PRN (06:26)
[2019-08-29] MEDS: DUONEB 0.5 MG/3 MG NEB PRN ×2 (08:30→20:27)
[2019-08-29] MEDS: FLONASE NASAL SPRAY ENOSTRIL SCH (08:33)
[2019-08-29] MEDS: ZANTAC PO SCH ×2 (08:33→20:43)
[2019-08-29] MEDS ORDERED: TOPROL XL PO SCH (11:00)
[2019-08-29] MEDS ORDERED: NS 1/2 1000 ML IV 1,000 ML IV ONE ×2 (11:13→17:14)
[2019-08-29] MEDS: NS 1/2 1000 ML IV 1,000 ML IV PRN ×2 (11:21→17:48)
[2019-08-29] MEDS: ZyrTEC TAB 10 MG PO SCH (20:43)
[2019-08-29] MEDS: COZAAR PO SCH (21:08)
[2019-08-30] MEDS ORDERED: NS 1/2 1000 ML IV 1,000 ML IV ONE ×2 (00:31→06:35)
[2019-08-30] MEDS: NS 1/2 1000 ML IV 1,000 ML IV PRN ×2 (00:43→06:39)
[2019-08-30] MEDS: ZOVIRAX TOP SCH ×3 (02:31→17:40)
[2019-08-30 05:02] LABS: BASOPHILS % (AUTO) 0.1 % (0.2-1.0); EOSINOPHILS # (AUTO) 0.1 x10^3/uL (0.0-0.2); EOSINOPHILS % (AUTO) 0.4 % (0.9-2.9); HEMATOCRIT 32.9 % (36.0-47.0); HEMOGLOBIN 11.1 g/dL (12.0-16.0); MEAN CORPUSCULAR HEMOGLOBIN 28.1 pg (27.0-34.0); MEAN CORPUSCULAR HGB CONC 33.7 g/dL (33.0-35.0); MEAN CORPUSCULAR VOLUME 83.3 fL (80.0-100.0); MEAN PLATELET VOLUME 6.2 fL (7.4-11.0); MONOCYTES # (AUTO) 0.6 x10^3/uL (0.3-0.8); MONOCYTES % (AUTO) 4.6 % (0.0-13.0); NEUTROPHILS # (AUTO) 12.2 x10^3/uL (2.2-4.8); NEUTROPHILS % (AUTO) 87.9 % (42.0-75.0); PLATELET COUNT 636 X10^3/uL (150.0-450.0); RED BLOOD COUNT 3.95 X10^6/uL (3.5-5.4); RED CELL DISTRIBUTION WIDTH 13.6 % (11.6-16.5); WHITE BLOOD COUNT 13.9 X10^3/uL (3.6-10.0)
[2019-08-30 05:15] LABS: ALANINE AMINOTRANSFERASE 19 Units/L (12-78); ALBUMIN 2.4 g/dL (3.4-5.0); ALKALINE PHOSPHATASE 86 Units/L (46-116); ASPARTATE AMINO TRANSFERASE 35 Units/L (15-37); BLOOD UREA NITROGEN 9 mg/dL (7-18); CALCIUM 6.7 mg/dL (8.5-10.1); CARBON DIOXIDE 21.4 mmol/L (21-32); CHLORIDE 111 mmol/L (98-107); SODIUM 145 mmol/L (136-145); TOTAL PROTEIN 6.4 g/dL (6.4-8.2); eGFR NON BLACK RACES > 60 (>60)
[2019-08-30 05:18] LABS: PLATELET MORPHOLOGY COMMENT NORMAL (NORMAL)
[2019-08-30] MEDS: ZOSYN VIAL 4.5 GRAMS 4.5 G in NS 100 ML IV + SPIKE MINIBAG* 100 ML IV SCH ×3 (05:18→21:36)
[2019-08-30] MEDS: KLOR-CON PO PRN (05:34)
--- NOTE | 2019-08-30 07:47 | RAD ---
Examination: Chest, PA and lateral views History: SOB, cervical lymphadenopathy Comparison 08/26/2019 Findings: The heart is upper normal in size. There is a diffuse bilateral interstitial prominence in the lungs which has increased slightly since prior. There is no definite consolidation, mass or pleural fluid. Mediastinal adenopathy described on recent neck CT not definitely identified on this study. Impression: Interval increase in interstitial prominence since 08/26/2019 is suggestive of developing perivascular edema, less likely inflammatory process. Reported By:
[2019-08-30] MEDS: XOPENEX 1.25 MG/3 ML NEBULE NEB PRN (08:58)
[2019-08-30] MEDS: ZANTAC PO SCH ×2 (09:51→20:23)
[2019-08-30] MEDS: COZAAR PO SCH (09:51)
[2019-08-30] MEDS: TYLENOL 325 MG TAB PO PRN (09:56)
[2019-08-30] MEDS: FLONASE NASAL SPRAY ENOSTRIL SCH (10:05)
[2019-08-30] MEDS ORDERED: LASIX IVP ONE (12:41)
[2019-08-30] MEDS ORDERED: LASIX ONE (15:07)
[2019-08-30] MEDS: VSL#3 PO SCH (15:21)
[2019-08-30] MEDS: BUTT CREAM (COMPOUND) TOP PRN (15:26)
[2019-08-30] MEDS ORDERED: NS 500 ML IV 500 ML IV ONE (20:00)
[2019-08-30] MEDS: TOPROL XL PO SCH (20:23)
[2019-08-30] MEDS: ZyrTEC TAB 10 MG PO SCH (20:23)
[2019-08-31] MEDS: ZOVIRAX TOP SCH ×3 (01:20→17:31)
[2019-08-31 05:19] LABS: BASOPHILS % (AUTO) 0.3 % (0.2-1.0); EOSINOPHILS # (AUTO) 0.2 x10^3/uL (0.0-0.2); EOSINOPHILS % (AUTO) 1.8 % (0.9-2.9); HEMATOCRIT 32.9 % (36.0-47.0); HEMOGLOBIN 11.4 g/dL (12.0-16.0); LYMPHOCYTES # (AUTO) 0.7 X10^3/uL (1.3-2.9); MEAN CORPUSCULAR HEMOGLOBIN 28.2 pg (27.0-34.0); MEAN CORPUSCULAR HGB CONC 34.6 g/dL (33.0-35.0); MEAN CORPUSCULAR VOLUME 81.6 fL (80.0-100.0); MEAN PLATELET VOLUME 6.3 fL (7.4-11.0); MONOCYTES # (AUTO) 0.3 x10^3/uL (0.3-0.8); NEUTROPHILS # (AUTO) 8.2 x10^3/uL (2.2-4.8); NEUTROPHILS % (AUTO) 86.9 % (42.0-75.0); PLATELET COUNT 627 X10^3/uL (150.0-450.0); RED BLOOD COUNT 4.04 X10^6/uL (3.5-5.4); RED CELL DISTRIBUTION WIDTH 13.5 % (11.6-16.5); WHITE BLOOD COUNT 9.4 X10^3/uL (3.6-10.0)
[2019-08-31 05:24] LABS: ALANINE AMINOTRANSFERASE 26 Units/L (12-78); ALBUMIN 2.5 g/dL (3.4-5.0); ALKALINE PHOSPHATASE 85 Units/L (46-116); ASPARTATE AMINO TRANSFERASE 39 Units/L (15-37); BLOOD UREA NITROGEN 8 mg/dL (7-18); CALCIUM 7.1 mg/dL (8.5-10.1); CARBON DIOXIDE 21.6 mmol/L (21-32); CHLORIDE 109 mmol/L (98-107); COR CA(FOR HYPOALB) 8.3 mg/dL (8.5-10.1); CREATININE 0.91 mg/dL (0.55-1.02); SODIUM 145 mmol/L (136-145); TOTAL PROTEIN 6.7 g/dL (6.4-8.2); eGFR NON BLACK RACES > 60 (>60)
[2019-08-31 05:46] LABS: PLATELET MORPHOLOGY COMMENT NORMAL (NORMAL)
[2019-08-31] MEDS: ZOSYN VIAL 4.5 GRAMS 4.5 G in NS 100 ML IV + SPIKE MINIBAG* 100 ML IV SCH ×3 (06:07→21:14)
[2019-08-31] MEDS: KLOR-CON PO PRN (06:08)
[2019-08-31] MEDS: K-DUR TAB 20 MEQ PO PRN ×2 (06:40→13:08)
[2019-08-31] MEDS: VSL#3 PO SCH (09:37)
[2019-08-31] MEDS: COZAAR PO SCH (09:38)
[2019-08-31] MEDS: ZANTAC PO SCH ×2 (09:38→20:48)
[2019-08-31] MEDS: FLONASE NASAL SPRAY ENOSTRIL SCH (09:39)
[2019-08-31] MEDS ORDERED: LASIX IVP ONE (10:15)
[2019-08-31] MEDS: LOMOTIL PO PRN ×2 (11:40→20:48)
[2019-08-31] MEDS ORDERED: LASIX IVP NR (12:00)
--- NOTE | 2019-08-31 12:48 | RAD ---
HISTORY: Pulmonary edema Study: PA and lateral views of the chest. Comparison: 11/09/2017 Findings: The cardiomediastinal silhouette is normal. Streaky bibasilar opacities which may represent edema versus atypical infection. No effusion. Osseous structures demonstrate no acute abnormality. IMPRESSION: 1. Bilateral edema like pattern. Reported By:
[2019-08-31] MEDS: ZyrTEC TAB 10 MG PO SCH (20:48)
[2019-08-31] MEDS: TOPROL XL PO SCH (20:48)
[2019-08-31] MEDS: BUTT CREAM (COMPOUND) TOP PRN (20:51)
[2019-09-01] MEDS: ZOVIRAX TOP SCH ×3 (02:21→18:44)
[2019-09-01] MEDS: ZOSYN VIAL 4.5 GRAMS 4.5 G in NS 100 ML IV + SPIKE MINIBAG* 100 ML IV SCH ×3 (05:24→21:55)
[2019-09-01 06:16] LABS: BASOPHILS # (AUTO) 0.1 X10^3/uL (0.0-0.1); BASOPHILS % (AUTO) 0.7 % (0.2-1.0); EOSINOPHILS # (AUTO) 0.6 x10^3/uL (0.0-0.2); EOSINOPHILS % (AUTO) 4.2 % (0.9-2.9); HEMATOCRIT 39.2 % (36.0-47.0); HEMOGLOBIN 13.1 g/dL (12.0-16.0); LYMPHOCYTES # (AUTO) 0.9 X10^3/uL (1.3-2.9); LYMPHOCYTES % (AUTO) 6.4 % (21.0-51.0); MEAN CORPUSCULAR HEMOGLOBIN 27.8 pg (27.0-34.0); MEAN CORPUSCULAR HGB CONC 33.4 g/dL (33.0-35.0); MEAN CORPUSCULAR VOLUME 83.4 fL (80.0-100.0); MEAN PLATELET VOLUME 6.1 fL (7.4-11.0); MONOCYTES # (AUTO) 0.4 x10^3/uL (0.3-0.8); MONOCYTES % (AUTO) 2.6 % (0.0-13.0); NEUTROPHILS # (AUTO) 12.6 x10^3/uL (2.2-4.8); NEUTROPHILS % (AUTO) 86.1 % (42.0-75.0); PLATELET COUNT 778 X10^3/uL (150.0-450.0); RED CELL DISTRIBUTION WIDTH 13.7 % (11.6-16.5); WHITE BLOOD COUNT 14.6 X10^3/uL (3.6-10.0)
[2019-09-01 06:25] LABS: ALANINE AMINOTRANSFERASE 39 Units/L (12-78); ALBUMIN 2.9 g/dL (3.4-5.0); ALKALINE PHOSPHATASE 179 Units/L (46-116); ASPARTATE AMINO TRANSFERASE 52 Units/L (15-37); BLOOD UREA NITROGEN 11 mg/dL (7-18); CALCIUM 7.9 mg/dL (8.5-10.1); CARBON DIOXIDE 21.7 mmol/L (21-32); CHLORIDE 109 mmol/L (98-107); COR CA(FOR HYPOALB) 8.8 mg/dL (8.5-10.1); CREATININE 1.27 mg/dL (0.55-1.02); SODIUM 146 mmol/L (136-145); TOTAL PROTEIN 7.9 g/dL (6.4-8.2); eGFR NON BLACK RACES 48 (>60)
--- NOTE | 2019-09-01 06:46 | RAD ---
HISTORY: Shortness of breath Study: Chest AP portable Comparison: 08/31/2019, 08/30/2019 Findings: The heart is upper limits normal in size. The ivory are normal. Interstitial lung changes are present not significantly different from the prior examination with the exception of some improvement in the lingular segment of the left upper lobe. This may represent resolving edema versus infection. No pleural effusions are identified. The bony thorax is unremarkable. IMPRESSION: Improving interstitial lung changes in the lingula Persistent interstitial lung changes in the remainder of the lung milligan Reported By:
[2019-09-01 07:07] LABS: PLATELET MORPHOLOGY COMMENT NORMAL (NORMAL)
[2019-09-01] MEDS: MICRO K EXTEN CAP 10 MEQ PO PRN ×2 (11:03→11:09)
[2019-09-01] MEDS: VSL#3 PO SCH (11:03)
[2019-09-01] MEDS: ZANTAC PO SCH (11:04)
[2019-09-01] MEDS: FLONASE NASAL SPRAY ENOSTRIL SCH (11:05)
[2019-09-01] MEDS: COZAAR PO SCH (11:06)
[2019-09-01] MEDS: PROCALAMINE 3 % 1,000 ML IV SCH (18:46)
--- NOTE | 2019-09-01 19:46 | PCM.PROG ---
Progress Note - Progress Note for Day of Date of Exam: 08/27/19 - Subjective Subjective: WAS ADMITTED FOR FURTHER EVALUATION AND TREATMENT OF HYPOTENSION, DIZZINESS, ABDOMINAL PAIN, AND BRONCHITIS. TODAY, SHE IS ALERT AND ORIENTED, LYING IN BED ON MORNING ROUNDS. SHE CONTINUES WITH COMPLAINTS OF SHORTNESS OF BREATH, ABDOMINAL PAIN, AND COUGH. ON EXAMINATION, SHE CONTINUES WITH RIGHT SIDED LYMPHADENOPATHY. HEART IS REGULAR IN RATE AND RHYTHM. BILATERAL LUNGS ARE NOTED WITH DIMINISHED LUNG SOUNDS THROUGHOUT. ABDOMEN IS ROUND, SOFT, AND NON-TENDER WITH NORMAL BOWEL SOUNDS NOTED IN ALL QUADRANTS. HER VITALS THIS MORNING ARE: 102.0-98-34-93%NC-133/78. LABS WERE OBTAINED. ABNORMAL LAB VALUES INCLUDE THE FOLLOWING: PLT COUNT 455, CHLORIDE 110, GLUCOSE 103, CALCIUM 7.5, AST 40, ALBUMIN 2.4. BLOOD CULTURES ARE PENDING. A THYROID US WAS OBTAINED YESTERDAY AND REVEALED: Normal overall sized thyroid gland with bilateral solid nodules with coarse calcification. Recommend six-month follow-up. A SOFT TISSUE NECK CT WAS OBTAINED YESTERDAY AND REVEALED: Mildly enlarged bilateral supraclavicular and mediastinal lymph nodes as described of uncertain etiology. Bilateral upper lobe ground-glass lung infiltrates. Normal sized thyroid gland with small bilateral nodules as described on ultrasound just 1 day prior. SHE IS CURRENTLY RECEIVING AZITHROMYCIN 250MG IV DAILY, ROCEPHIN 1G IV DAILY, RESPIRATORY TX, AND NS AT 150ML/HR. WE WILL DISCONTINUE THE AZITHROMYCIN AND ROCEPHIN TODAY. WE WILL START IV ZOSYN AND SOLU-MEDROL 40MG IV Q8H FOR TREATMENT OF PNEUMONIA. WE WILL OBTAIN AN ABG. WE PLAN TO FOLLOW UP WITH AM LABS AND CONTINUE TO MONITOR. - Past Medical Family Social History Past Med/Fam/Surg Hx: No changes since H&P Allergies: Allergies bacitracin Allergy (Verified 11/18/17 01:15) ciprofloxacin [From Cipro] Allergy (Verified 11/09/17 22:21) codeine Allergy (Verified 11/18/17 01:15) levofloxacin [From Levaquin] Allergy (Verified 11/18/17 01:15) montelukast [From Singulair] Allergy (Verified 11/18/17 01:15) neomycin Allergy (Verified 11/18/17 01:15) polymyxin B Allergy (Verified 11/18/17 01:15) sulfamethoxazole [From Bactrim] Allergy (Verified 11/18/17 01:15) trimethoprim [From Bactrim] Allergy (Verified 11/18/17 01:15) Wasp Venom Protein Allergy (Uncoded 11/18/17 01:15) - Review of Systems ROS: No change since H&P - Vital Signs and I&O's Vital Signs: Temperature 98.6 F Pulse Rate [Apical] 96 Pulse Rate [Standing] 64 Pulse Rate [Sitting] 83 Pulse Rate [Lying] 78 Pulse Rate 114 Respiratory Rate 18 Blood Pressure [Right Arm] 96/56 Blood Pressure [Left Arm] 134/89 Blood Pressure [Standing] 88/50 Blood Pressure [Sitting] 111/64 Blood Pressure [Lying] 105/61 Blood Pressure 144/88 O2 Sat by Pulse Oximetry 93 Intake and Output: Intake & Output 08/30/19 08/31/19 09/01/19 09/02/19 11:59 11:59 11:59 11:59 Intake Total 3321 / 3321 1120 / 1120 1570 / 1570 480 / 480 Output Total 1250 / 1250 1350 / 1350 Balance 2070 / 2070 -230 / -230 1570 / 1570 480 / 480 - Physical Exam Oriented: Normal Eyes: Normal Ear: Normal Nose: Normal Throat: Normal Respiratory: Generalized, Diminished Cardiovascular: Normal : Normal Auscultation: Bowel Sounds: Normal Palpation: Normal Tenderness: Diffuse, Mild Skin: Normal Musculoskeletal: Normal Psychiatric: Normal Mood Description: Calm Affect: Normal Speech Pattern: Clear, Appropriate - Laboratory and Diagnostics Result Diagrams: 09/01/19 05:40 09/01/19 05:40 Labs: 08/27/19 07:44 Blood Blood Culture - Final 08/27/19 07:32 Blood Blood Culture - Final 08/25/19 14:20 Blood Blood Culture - Final 08/25/19 14:35 Blood Blood Culture - Final Laboratory WBC 14.6 X10^3/uL (3.6-10.0) H 09/01/19 05:40 RBC 4.70 X10^6/uL (3.5-5.4) 09/01/19 05:40 Hgb 13.1 g/dL (12.0-16.0) 09/01/19 05:40 Hct 39.2 % (36.0-47.0) 09/01/19 05:40 MCV 83.4 fL (80.0-100.0) 09/01/19 05:40 MCH 27.8 pg (27.0-34.0) 09/01/19 05:40 MCHC 33.4 g/dL (33.0-35.0) 09/01/19 05:40 RDW 13.7 % (11.6-16.5) 09/01/19 05:40 Plt Count 778 X10^3/uL (150.0-450.0) H 09/01/19 05:40 Plt Count Comment Increased (ADEQUATE) A 09/01/19 05:40 MPV 6.1 fL (7.4-11.0) L 09/01/19 05:40 Neut % (Auto) 86.1 % (42.0-75.0) H 09/01/19 05:40 Lymph % (Auto) 6.4 % (21.0-51.0) L 09/01/19 05:40 [place] % (Auto) 2.6 % (0.0-13.0) 09/01/19 05:40 Eos % (Auto) 4.2 % (0.9-2.9) H 09/01/19 05:40 Baso % (Auto) 0.7 % (0.2-1.0) 09/01/19 05:40 Neut # (Auto) 12.6 x10^3/uL (2.2-4.8) H 09/01/19 05:40 Lymph # (Auto) 0.9 X10^3/uL (1.3-2.9) L 09/01/19 05:40 [place] # (Auto) 0.4 x10^3/uL (0.3-0.8) 09/01/19 05:40 Eos # (Auto) 0.6 x10^3/uL (0.0-0.2) H 09/01/19 05:40 Baso # (Auto) 0.1 X10^3/uL (0.0-0.1) 09/01/19 05:40 Absolute Nucleated RBC 0.9 /100WBC 09/01/19 05:40 Total Counted 100 09/01/19 05:40 Neutrophils % (Manual) 88 % (39-76) H 09/01/19 05:40 Lymphocytes % (Manual) 7 % (13-43) L 09/01/19 05:40 Monocytes % (Manual) 3 % (4-9) L 09/01/19 05:40 Eosinophils % (Manual) 2 % (0-6) 09/01/19 05:40 Plt Morphology Comment Normal (NORMAL) 09/01/19 05:40 RBC Morphology Normal (NORMAL) 09/01/19 05:40 Sample Site Rra 08/27/19 10:29 ABG pH 7.470 (7.35-7.45) H 08/27/19 10:29 ABG pCO2 28.0 mmHg (35.0-45.0) L 08/27/19 10:29 ABG pO2 64.0 mmHg (80.0-100.0) L 08/27/19 10:29 ABG HCO3 20.4 mmol/L (22-26) L 08/27/19 10:29 ABG O2 Saturation 93.0 % (90-100) 08/27/19 10:29 ABG Base Excess -2.2 mmol/L (-2.0-2.0) L 08/27/19 10:29 Chon Test Pos 08/27/19 10:29 A-a Gradient 101.0 mmHg 08/27/19 10:29 FiO2 28.0 08/27/19 10:29 Blood Gas Comments Pt [place] eb 08/27/19 10:29 Sodium 146 mmol/L (136-145) H 09/01/19 05:40 Corrected Sodium TNP 09/01/19 05:40 Potassium 3.5 mmol/L (3.5-5.1) 09/01/19 05:40 Chloride 109 mmol/L (98-107) H 09/01/19 05:40 Carbon Dioxide 21.7 mmol/L (21-32) 09/01/19 05:40 BUN 11 mg/dL (7-18) 09/01/19 05:40 Creatinine 1.27 mg/dL (0.55-1.02) H 09/01/19 05:40 Est GFR (MDRD) Af Amer 58 (>60) L 09/01/19 05:40 Est GFR (MDRD) Non-Af 48 (>60) L 09/01/19 05:40 Glucose 99 mg/dL (65-99) 09/01/19 05:40 Lactic Acid 1.8 mmol/L (0.4-2.0) 08/27/19 07:32 Calcium 7.9 mg/dL (8.5-10.1) L 09/01/19 05:40 Corrected Calcium 8.8 mg/dL (8.5-10.1) 09/01/19 05:40 Magnesium 2.0 mg/dL (1.7-2.9) 08/29/19 04:27 Total Bilirubin 0.80 mg/dL (0.2-1.0) 09/01/19 05:40 AST 52 Units/L (15-37) H 09/01/19 05:40 ALT 39 Units/L (12-78) 09/01/19 05:40 Alkaline Phosphatase 179 Units/L (46-116) H 09/01/19 05:40 Creatine Kinase 26 Units/L (26-192) 08/26/19 05:45 CK-MB (CK-2) < 1.0 ng/mL (0-4.0) 08/26/19 05:45 CK/CKMB % Calc 3.9 % (<4) 08/26/19 05:45 Troponin I < 0.02 ng/mL (0-1.5) 08/26/19 05:45 C-Reactive Protein 45.40 mg/L (0-3.0) H 08/25/19 13:12 Total Protein 7.9 g/dL (6.4-8.2) 09/01/19 05:40 Albumin 2.9 g/dL (3.4-5.0) L 09/01/19 05:40 Globulin 5.0 g/dL (2.5-4.5) H 09/01/19 05:40 Albumin/Globulin Ratio 0.6 Ratio (1.1-2.1) L 09/01/19 05:40 Amylase 77 Units/L (25-115) 08/25/19 13:12 Lipase 172 Units/L (73-393) 08/25/19 13:12 Specimen Type Clean catch urine 08/25/19 15:23 Urine Color Yellow (YELLOW) 08/25/19 15:23 Urine Appearance Clear (CLEAR) 08/25/19 15:23 Urine pH 6.0 (5.0 - 8.0) 08/25/19 15:23 Ur Specific [place] 1.020 (1.000-1.030) 08/25/19 15:23 Urine Protein 2+ (NEGATIVE) 08/25/19 15:23 Urine Glucose (UA) Negative (NEGATIVE) 08/25/19 15:23 Urine Ketones Negative (NEGATIVE) 08/25/19 15:23 Urine Occult Blood Negative (NEGATIVE) 08/25/19 15:23 Urine Nitrite Negative (NEGATIVE) 08/25/19 15:23 Urine Bilirubin Negative (NEGATIVE) 08/25/19 15:23 Urine Urobilinogen Normal (NORMAL) 08/25/19 15:23 Ur Leukocyte Esterase Negative (NEGATIVE) 08/25/19 15:23 Urine RBC None seen /HPF (0-3) 08/25/19 15:23 Urine WBC 0-2 /HPF (0-5) 08/25/19 15:23 Ur Squamous Epith Cells Few /HPF (NEGATIVE) 08/25/19 15:23 Amorphous Sediment 1+ /HPF (NEGATIVE) 08/25/19 15:23 Urine Bacteria Trace /HPF (NEGATIVE) 08/25/19 15:23 Ur Culture Indicated? No/not indicated 08/25/19 15:23 Stl C. diff Tox B Gene Negative (NEGATIVE) 08/30/19 18:50 Stl C. diff [id number] Negative (NEGATIVE) 08/30/19 18:50 - Plan (1) Pneumonia Status: Acute Qualifiers: Pneumonia type: due to unspecified organism Laterality: bilateral Lung location: upper lobe of lung Qualified Code(s): J18.9 - Pneumonia, unspecified organism Plan: IV ZOSYN, RESPIRATORY TX, CONTINUE TO MONITOR (2) Abdominal pain Status: Acute Qualifiers: Abdominal location: generalized Qualified Code(s): R10.84 - Generalized abdominal pain (3) Hypotension Status: Acute Qualifiers: Hypotension type: unspecified hypotension type Qualified Code(s): I95.9 - Hypotension, unspecified Plan: IV FLUIDS, CONTINUE TO MONITOR (4) Near syncope Status: Acute (5) Lymphadenopathy Status: Acute
--- NOTE | 2019-09-01 19:50 | PCM.PROG ---
Progress Note - Progress Note for Day of Date of Exam: 08/26/19 - Subjective Subjective: WAS ADMITTED FOR FURTHER EVALUATION AND TREATMENT OF HYPOTENSION, DIZZINESS, ABDOMINAL PAIN, AND BRONCHITIS. TODAY, SHE IS ALERT AND ORIENTED, LYING IN BED ON MORNING ROUNDS. SHE CONTINUES WITH COMPLAINTS OF SHORTNESS OF BREATH, ABDOMINAL PAIN, AND COUGH. ON EXAMINATION, SHE CONTINUES WITH RIGHT SIDED LYMPHADENOPATHY. HEART IS REGULAR IN RATE AND RHYTHM. BILATERAL LUNGS ARE NOTED WITH DIMINISHED LUNG SOUNDS THROUGHOUT. ABDOMEN IS ROUND, SOFT, AND NON-TENDER WITH NORMAL BOWEL SOUNDS NOTED IN ALL QUADRANTS. HER VITALS THIS MORNING ARE: 99.0-101-24-96%-108/62. LABS WERE OBTAINED. ABNORMAL LAB VALUES INCLUDE THE FOLLOWING: HCT 35.9, CREATININE 1.17, LACTIC ACID 2.1, CALCIUM 7.5, MAGNESIUM 1.5, AST 44, ALBUMIN 2.6. BLOOD CULTURES ARE PENDING. A CHEST XRAY WAS OBTAINED THIS MORNING AND REVEALED: No acute cardiopulmonary abnormality. SHE IS CURRENTLY RECEIVING AZITHROMYCIN 250MG IV DAILY, ROCEPHIN 1G IV DAILY, RESPIRATORY TX, AND NS AT 150ML/HR. WE WILL CONTINUE WITH CURRENT PLAN OF CARE TODAY. WE WILL OBTAIN A THYROID US AND A NECK CT WITH CONTRAST. OTHERWISE, WE PLAN TO FOLLOW UP WITH AM LABS AND CONTINUE TO MONITOR. - Past Medical Family Social History Past Med/Fam/Surg Hx: No changes since H&P Allergies: Allergies bacitracin Allergy (Verified 11/18/17 01:15) ciprofloxacin [From Cipro] Allergy (Verified 11/09/17 22:21) codeine Allergy (Verified 11/18/17 01:15) levofloxacin [From Levaquin] Allergy (Verified 11/18/17 01:15) montelukast [From Singulair] Allergy (Verified 11/18/17 01:15) neomycin Allergy (Verified 11/18/17 01:15) polymyxin B Allergy (Verified 11/18/17 01:15) sulfamethoxazole [From Bactrim] Allergy (Verified 11/18/17 01:15) trimethoprim [From Bactrim] Allergy (Verified 11/18/17 01:15) Wasp Venom Protein Allergy (Uncoded 11/18/17 01:15) - Review of Systems ROS: No change since H&P - Vital Signs and I&O's Vital Signs: Temperature 98.6 F Pulse Rate [Apical] 96 Pulse Rate [Standing] 64 Pulse Rate [Sitting] 83 Pulse Rate [Lying] 78 Pulse Rate 114 Respiratory Rate 18 Blood Pressure [Right Arm] 96/56 Blood Pressure [Left Arm] 134/89 Blood Pressure [Standing] 88/50 Blood Pressure [Sitting] 111/64 Blood Pressure [Lying] 105/61 Blood Pressure 144/88 O2 Sat by Pulse Oximetry 93 Intake and Output: Intake & Output 08/30/19 08/31/19 09/01/19 09/02/19 11:59 11:59 11:59 11:59 Intake Total 3321 / 3321 1120 / 1120 1570 / 1570 480 / 480 Output Total 1250 / 1250 1350 / 1350 Balance 2070 / 2070 -230 / -230 1570 / 1570 480 / 480 - Physical Exam Oriented: Normal Eyes: Normal Ear: Normal Nose: Normal Throat: Normal Respiratory: Generalized, Diminished Cardiovascular: Normal : Normal Auscultation: Bowel Sounds: Normal Tenderness: Diffuse, Mild Skin: Normal Musculoskeletal: Normal Psychiatric: Normal Mood Description: Calm Affect: Normal Speech Pattern: Clear, Appropriate - Laboratory and Diagnostics Result Diagrams: 09/01/19 05:40 09/01/19 05:40 Labs: 08/27/19 07:44 Blood Blood Culture - Final 08/27/19 07:32 Blood Blood Culture - Final 08/25/19 14:20 Blood Blood Culture - Final 08/25/19 14:35 Blood Blood Culture - Final Laboratory WBC 14.6 X10^3/uL (3.6-10.0) H 09/01/19 05:40 RBC 4.70 X10^6/uL (3.5-5.4) 09/01/19 05:40 Hgb 13.1 g/dL (12.0-16.0) 09/01/19 05:40 Hct 39.2 % (36.0-47.0) 09/01/19 05:40 MCV 83.4 fL (80.0-100.0) 09/01/19 05:40 MCH 27.8 pg (27.0-34.0) 09/01/19 05:40 MCHC 33.4 g/dL (33.0-35.0) 09/01/19 05:40 RDW 13.7 % (11.6-16.5) 09/01/19 05:40 Plt Count 778 X10^3/uL (150.0-450.0) H 09/01/19 05:40 Plt Count Comment Increased (ADEQUATE) A 09/01/19 05:40 MPV 6.1 fL (7.4-11.0) L 09/01/19 05:40 Neut % (Auto) 86.1 % (42.0-75.0) H 09/01/19 05:40 Lymph % (Auto) 6.4 % (21.0-51.0) L 09/01/19 05:40 [place] % (Auto) 2.6 % (0.0-13.0) 09/01/19 05:40 Eos % (Auto) 4.2 % (0.9-2.9) H 09/01/19 05:40 Baso % (Auto) 0.7 % (0.2-1.0) 09/01/19 05:40 Neut # (Auto) 12.6 x10^3/uL (2.2-4.8) H 09/01/19 05:40 Lymph # (Auto) 0.9 X10^3/uL (1.3-2.9) L 09/01/19 05:40 [place] # (Auto) 0.4 x10^3/uL (0.3-0.8) 09/01/19 05:40 Eos # (Auto) 0.6 x10^3/uL (0.0-0.2) H 09/01/19 05:40 Baso # (Auto) 0.1 X10^3/uL (0.0-0.1) 09/01/19 05:40 Absolute Nucleated RBC 0.9 /100WBC 09/01/19 05:40 Total Counted 100 09/01/19 05:40 Neutrophils % (Manual) 88 % (39-76) H 09/01/19 05:40 Lymphocytes % (Manual) 7 % (13-43) L 09/01/19 05:40 Monocytes % (Manual) 3 % (4-9) L 09/01/19 05:40 Eosinophils % (Manual) 2 % (0-6) 09/01/19 05:40 Plt Morphology Comment Normal (NORMAL) 09/01/19 05:40 RBC Morphology Normal (NORMAL) 09/01/19 05:40 Sample Site Rra 08/27/19 10:29 ABG pH 7.470 (7.35-7.45) H 08/27/19 10:29 ABG pCO2 28.0 mmHg (35.0-45.0) L 08/27/19 10:29 ABG pO2 64.0 mmHg (80.0-100.0) L 08/27/19 10:29 ABG HCO3 20.4 mmol/L (22-26) L 08/27/19 10:29 ABG O2 Saturation 93.0 % (90-100) 08/27/19 10:29 ABG Base Excess -2.2 mmol/L (-2.0-2.0) L 08/27/19 10:29 Chon Test Pos 08/27/19 10:29 A-a Gradient 101.0 mmHg 08/27/19 10:29 FiO2 28.0 08/27/19 10:29 Blood Gas Comments Pt toll well eb 08/27/19 10:29 Sodium 146 mmol/L (136-145) H 09/01/19 05:40 Corrected Sodium TNP 09/01/19 05:40 Potassium 3.5 mmol/L (3.5-5.1) 09/01/19 05:40 Chloride 109 mmol/L (98-107) H 09/01/19 05:40 Carbon Dioxide 21.7 mmol/L (21-32) 09/01/19 05:40 BUN 11 mg/dL (7-18) 09/01/19 05:40 Creatinine 1.27 mg/dL (0.55-1.02) H 09/01/19 05:40 Est GFR (MDRD) Af Amer 58 (>60) L 09/01/19 05:40 Est GFR (MDRD) Non-Af 48 (>60) L 09/01/19 05:40 Glucose 99 mg/dL (65-99) 09/01/19 05:40 Lactic Acid 1.8 mmol/L (0.4-2.0) 08/27/19 07:32 Calcium 7.9 mg/dL (8.5-10.1) L 09/01/19 05:40 Corrected Calcium 8.8 mg/dL (8.5-10.1) 09/01/19 05:40 Magnesium 2.0 mg/dL (1.7-2.9) 08/29/19 04:27 Total Bilirubin 0.80 mg/dL (0.2-1.0) 09/01/19 05:40 AST 52 Units/L (15-37) H 09/01/19 05:40 ALT 39 Units/L (12-78) 09/01/19 05:40 Alkaline Phosphatase 179 Units/L (46-116) H 09/01/19 05:40 Creatine Kinase 26 Units/L (26-192) 08/26/19 05:45 CK-MB (CK-2) < 1.0 ng/mL (0-4.0) 08/26/19 05:45 CK/CKMB % Calc 3.9 % (<4) 08/26/19 05:45 Troponin I < 0.02 ng/mL (0-1.5) 08/26/19 05:45 C-Reactive Protein 45.40 mg/L (0-3.0) H 08/25/19 13:12 Total Protein 7.9 g/dL (6.4-8.2) 09/01/19 05:40 Albumin 2.9 g/dL (3.4-5.0) L 09/01/19 05:40 Globulin 5.0 g/dL (2.5-4.5) H 09/01/19 05:40 Albumin/Globulin Ratio 0.6 Ratio (1.1-2.1) L 09/01/19 05:40 Amylase 77 Units/L (25-115) 08/25/19 13:12 Lipase 172 Units/L (73-393) 08/25/19 13:12 Specimen Type Clean catch urine 08/25/19 15:23 Urine Color Yellow (YELLOW) 08/25/19 15:23 Urine Appearance Clear (CLEAR) 08/25/19 15:23 Urine pH 6.0 (5.0 - 8.0) 08/25/19 15:23 Ur Specific [place] 1.020 (1.000-1.030) 08/25/19 15:23 Urine Protein 2+ (NEGATIVE) 08/25/19 15:23 Urine Glucose (UA) Negative (NEGATIVE) 08/25/19 15:23 Urine Ketones Negative (NEGATIVE) 08/25/19 15:23 Urine Occult Blood Negative (NEGATIVE) 08/25/19 15:23 Urine Nitrite Negative (NEGATIVE) 08/25/19 15:23 Urine Bilirubin Negative (NEGATIVE) 08/25/19 15:23 Urine Urobilinogen Normal (NORMAL) 08/25/19 15:23 Ur Leukocyte Esterase Negative (NEGATIVE) 08/25/19 15:23 Urine RBC None seen /HPF (0-3) 08/25/19 15:23 Urine WBC 0-2 /HPF (0-5) 08/25/19 15:23 Ur Squamous Epith Cells Few /HPF (NEGATIVE) 08/25/19 15:23 Amorphous Sediment 1+ /HPF (NEGATIVE) 08/25/19 15:23 Urine Bacteria Trace /HPF (NEGATIVE) 08/25/19 15:23 Ur Culture Indicated? No/not indicated 08/25/19 15:23 Stl C. diff Tox B Gene Negative (NEGATIVE) 08/30/19 18:50 Stl C. diff [id number] Negative (NEGATIVE) 08/30/19 18:50 - Plan (1) Pneumonia Status: Acute Qualifiers: Pneumonia type: due to unspecified organism Laterality: bilateral Lung location: upper lobe of lung Qualified Code(s): J18.9 - Pneumonia, unspecified organism Plan: IV ZOSYN, RESPIRATORY TX, CONTINUE TO MONITOR (2) Abdominal pain Status: Acute Qualifiers: Abdominal location: generalized Qualified Code(s): R10.84 - Generalized abdominal pain (3) Hypotension Status: Acute Qualifiers: Hypotension type: unspecified hypotension type Qualified Code(s): I95.9 - Hypotension, unspecified Plan: IV FLUIDS, CONTINUE TO MONITOR (4) Near syncope Status: Acute (5) Lymphadenopathy Status: Acute Plan: OBTAIN THYROID US AND SOFT TISSUE NECK CT, CONTINUE TO MONITOR
--- NOTE | 2019-09-01 20:01 | PCM.PROG ---
Progress Note - Progress Note for Day of Date of Exam: 09/01/19 - Subjective Subjective: WAS ADMITTED FOR FURTHER EVALUATION AND TREATMENT OF HYPOTENSION, DIZZINESS, ABDOMINAL PAIN, AND BRONCHITIS. TODAY, SHE IS ALERT AND ORIENTED, LYING IN BED ON MORNING ROUNDS. SHE CONTINUES WITH COMPLAINTS OF SHORTNESS OF BREATH, ABDOMINAL PAIN, AND COUGH. ON EXAMINATION, SHE CONTINUES WITH RIGHT SIDED LYMPHADENOPATHY. HEART IS REGULAR IN RATE AND RHYTHM. BILATERAL LUNGS ARE NOTED WITH DIMINISHED LUNG SOUNDS THROUGHOUT. ABDOMEN IS ROUND, SOFT, AND NON-TENDER WITH NORMAL BOWEL SOUNDS NOTED IN ALL QUADRANTS. HER VITALS THIS MORNING ARE: 100.3-117-20-94%-123/71. LABS WERE OBTAINED. ABNORMAL LAB VALUES INCLUDE THE FOLLOWING: WBC 14.6, PLT COUNT 778, SODIUM 146, CHLORIDE 109, CRE ATININE 1.27, CALCIUM 7.9, ALK PHOS 179, ALBUMIN 2.9, GLOBULIN 5.0. BLOOD CULTURES ARE PENDING. A CHEST XRAY WAS OBTAINED TODAY AND REVEALED: Improving interstitial lung changes in the lingula. Persistent interstitial lung changes in the remainder of the lung [place]. SHE IS CURRENTLY RECEIVING IV ZOSYN, RESPIRATORY TX, SOLU-MEDROL 40MG IV Q8H, AND NS AT 150ML/HR. WE WILL CONTINUE WITH CURRENT PLAN OF CARE TODAY. OTHERWISE, WE PLAN TO FOLLOW UP WITH AM LABS AND CONTINUE TO MONITOR. - Past Medical Family Social History Past Med/Fam/Surg Hx: No changes since H&P Allergies: Allergies bacitracin Allergy (Verified 11/18/17 01:15) ciprofloxacin [From Cipro] Allergy (Verified 11/09/17 22:21) codeine Allergy (Verified 11/18/17 01:15) levofloxacin [From Levaquin] Allergy (Verified 11/18/17 01:15) montelukast [From Singulair] Allergy (Verified 11/18/17 01:15) neomycin Allergy (Verified 11/18/17 01:15) polymyxin B Allergy (Verified 11/18/17 01:15) sulfamethoxazole [From Bactrim] Allergy (Verified 11/18/17 01:15) trimethoprim [From Bactrim] Allergy (Verified 11/18/17 01:15) Wasp Venom Protein Allergy (Uncoded 11/18/17 01:15) - Review of Systems ROS: No change since H&P - Vital Signs and I&O's Vital Signs: Temperature 98.6 F Pulse Rate [Apical] 96 Pulse Rate [Standing] 64 Pulse Rate [Sitting] 83 Pulse Rate [Lying] 78 Pulse Rate 114 Respiratory Rate 18 Blood Pressure [Right Arm] 96/56 Blood Pressure [Left Arm] 134/89 Blood Pressure [Standing] 88/50 Blood Pressure [Sitting] 111/64 Blood Pressure [Lying] 105/61 Blood Pressure 144/88 O2 Sat by Pulse Oximetry 93 Intake and Output: Intake & Output 08/30/19 08/31/19 09/01/19 09/02/19 11:59 11:59 11:59 11:59 Intake Total 3321 / 3321 1120 / 1120 1570 / 1570 480 / 480 Output Total 1250 / 1250 1350 / 1350 Balance 2070 -230 / -230 1570 / 1570 480 / 480 - Physical Exam Oriented: Normal Eyes: Normal Ear: Normal Nose: Normal Throat: Normal Respiratory: Generalized, Diminished Cardiovascular: Normal : Normal Auscultation: Bowel Sounds: Normal Palpation: Normal Tenderness: Diffuse, Mild Skin: Normal Musculoskeletal: Normal Psychiatric: Normal Mood Description: Calm Affect: Normal Speech Pattern: Clear, Appropriate - Laboratory and Diagnostics Result Diagrams: 09/01/19 05:40 09/01/19 05:40 Labs: 08/27/19 07:44 Blood Blood Culture - Final 08/27/19 07:32 Blood Blood Culture - Final 08/25/19 14:20 Blood Blood Culture - Final 08/25/19 14:35 Blood Blood Culture - Final Laboratory WBC 14.6 X10^3/uL (3.6-10.0) H 09/01/19 05:40 RBC 4.70 X10^6/uL (3.5-5.4) 09/01/19 05:40 Hgb 13.1 g/dL (12.0-16.0) 09/01/19 05:40 Hct 39.2 % (36.0-47.0) 09/01/19 05:40 MCV 83.4 fL (80.0-100.0) 09/01/19 05:40 MCH 27.8 pg (27.0-34.0) 09/01/19 05:40 MCHC 33.4 g/dL (33.0-35.0) 09/01/19 05:40 RDW 13.7 % (11.6-16.5) 09/01/19 05:40 Plt Count 778 X10^3/uL (150.0-450.0) H 09/01/19 05:40 Plt Count Comment Increased (ADEQUATE) A 09/01/19 05:40 MPV 6.1 fL (7.4-11.0) L 09/01/19 05:40 Neut % (Auto) 86.1 % (42.0-75.0) H 09/01/19 05:40 Lymph % (Auto) 6.4 % (21.0-51.0) L 09/01/19 05:40 [place] % (Auto) 2.6 % (0.0-13.0) 09/01/19 05:40 Eos % (Auto) 4.2 % (0.9-2.9) H 09/01/19 05:40 Baso % (Auto) 0.7 % (0.2-1.0) 09/01/19 05:40 Neut # (Auto) 12.6 x10^3/uL (2.2-4.8) H 09/01/19 05:40 Lymph # (Auto) 0.9 X10^3/uL (1.3-2.9) L 09/01/19 05:40 [place] # (Auto) 0.4 x10^3/uL (0.3-0.8) 09/01/19 05:40 Eos # (Auto) 0.6 x10^3/uL (0.0-0.2) H 09/01/19 05:40 Baso # (Auto) 0.1 X10^3/uL (0.0-0.1) 09/01/19 05:40 Absolute Nucleated RBC 0.9 /100WBC 09/01/19 05:40 Total Counted 100 09/01/19 05:40 Neutrophils % (Manual) 88 % (39-76) H 09/01/19 05:40 Lymphocytes % (Manual) 7 % (13-43) L 09/01/19 05:40 Monocytes % (Manual) 3 % (4-9) L 09/01/19 05:40 Eosinophils % (Manual) 2 % (0-6) 09/01/19 05:40 Plt Morphology Comment Normal (NORMAL) 09/01/19 05:40 RBC Morphology Normal (NORMAL) 09/01/19 05:40 Sample Site Rra 08/27/19 10:29 ABG pH 7.470 (7.35-7.45) H 08/27/19 10:29 ABG pCO2 28.0 mmHg (35.0-45.0) L 08/27/19 10:29 ABG pO2 64.0 mmHg (80.0-100.0) L 08/27/19 10:29 ABG HCO3 20.4 mmol/L (22-26) L 08/27/19 10:29 ABG O2 Saturation 93.0 % (90-100) 08/27/19 10:29 ABG Base Excess -2.2 mmol/L (-2.0-2.0) L 08/27/19 10:29 Chon Test Pos 08/27/19 10:29 A-a Gradient 101.0 mmHg 08/27/19 10:29 FiO2 28.0 08/27/19 10:29 Blood Gas Comments Pt toll well eb 08/27/19 10:29 Sodium 146 mmol/L (136-145) H 09/01/19 05:40 Corrected Sodium TNP 09/01/19 05:40 Potassium 3.5 mmol/L (3.5-5.1) 09/01/19 05:40 Chloride 109 mmol/L (98-107) H 09/01/19 05:40 Carbon Dioxide 21.7 mmol/L (21-32) 09/01/19 05:40 BUN 11 mg/dL (7-18) 09/01/19 05:40 Creatinine 1.27 mg/dL (0.55-1.02) H 09/01/19 05:40 Est GFR (MDRD) Af Amer 58 (>60) L 09/01/19 05:40 Est GFR (MDRD) Non-Af 48 (>60) L 09/01/19 05:40 Glucose 99 mg/dL (65-99) 09/01/19 05:40 Lactic Acid 1.8 mmol/L (0.4-2.0) 08/27/19 07:32 Calcium 7.9 mg/dL (8.5-10.1) L 09/01/19 05:40 Corrected Calcium 8.8 mg/dL (8.5-10.1) 09/01/19 05:40 Magnesium 2.0 mg/dL (1.7-2.9) 08/29/19 04:27 Total Bilirubin 0.80 mg/dL (0.2-1.0) 09/01/19 05:40 AST 52 Units/L (15-37) H 09/01/19 05:40 ALT 39 Units/L (12-78) 09/01/19 05:40 Alkaline Phosphatase 179 Units/L (46-116) H 09/01/19 05:40 Creatine Kinase 26 Units/L (26-192) 08/26/19 05:45 CK-MB (CK-2) < 1.0 ng/mL (0-4.0) 08/26/19 05:45 CK/CKMB % Calc 3.9 % (<4) 08/26/19 05:45 Troponin I < 0.02 ng/mL (0-1.5) 08/26/19 05:45 C-Reactive Protein 45.40 mg/L (0-3.0) H 08/25/19 13:12 Total Protein 7.9 g/dL (6.4-8.2) 09/01/19 05:40 Albumin 2.9 g/dL (3.4-5.0) L 09/01/19 05:40 Globulin 5.0 g/dL (2.5-4.5) H 09/01/19 05:40 Albumin/Globulin Ratio 0.6 Ratio (1.1-2.1) L 09/01/19 05:40 Amylase 77 Units/L (25-115) 08/25/19 13:12 Lipase 172 Units/L (73-393) 08/25/19 13:12 Specimen Type Clean catch urine 08/25/19 15:23 Urine Color Yellow (YELLOW) 08/25/19 15:23 Urine Appearance Clear (CLEAR) 08/25/19 15:23 Urine pH 6.0 (5.0 - 8.0) 08/25/19 15:23 Ur Specific [place] 1.020 (1.000-1.030) 08/25/19 15:23 Urine Protein 2+ (NEGATIVE) 08/25/19 15:23 Urine Glucose (UA) Negative (NEGATIVE) 08/25/19 15:23 Urine Ketones Negative (NEGATIVE) 08/25/19 15:23 Urine Occult Blood Negative (NEGATIVE) 08/25/19 15:23 Urine Nitrite Negative (NEGATIVE) 08/25/19 15:23 Urine Bilirubin Negative (NEGATIVE) 08/25/19 15:23 Urine Urobilinogen Normal (NORMAL) 08/25/19 15:23 Ur Leukocyte Esterase Negative (NEGATIVE) 08/25/19 15:23 Urine RBC None seen /HPF (0-3) 08/25/19 15:23 Urine WBC 0-2 /HPF (0-5) 08/25/19 15:23 Ur Squamous Epith Cells Few /HPF (NEGATIVE) 08/25/19 15:23 Amorphous Sediment 1+ /HPF (NEGATIVE) 08/25/19 15:23 Urine Bacteria Trace /HPF (NEGATIVE) 08/25/19 15:23 Ur Culture Indicated? No/not indicated 08/25/19 15:23 Stl C. diff Tox B Gene Negative (NEGATIVE) 08/30/19 18:50 Stl C. diff [id number] Negative (NEGATIVE) 08/30/19 18:50 - Plan (1) Pneumonia Status: Acute Qualifiers: Pneumonia type: due to unspecified organism Laterality: bilateral Lung location: upper lobe of lung Qualified Code(s): J18.9 - Pneumonia, unspecified organism Plan: IV ZOSYN, RESPIRATORY TX, CONTINUE TO MONITOR (2) Abdominal pain Status: Acute Qualifiers: Abdominal location: generalized Qualified Code(s): R10.84 - Generalized abdominal pain (3) Hypotension Status: Acute Qualifiers: Hypotension type: unspecified hypotension type Qualified Code(s): I95.9 - Hypotension, unspecified Plan: IV FLUIDS, CONTINUE TO MONITOR (4) Near syncope Status: Acute (5) Lymphadenopathy Status: Acute Plan: OBTAIN THYROID US AND SOFT TISSUE NECK CT, CONTINUE TO MONITOR
[2019-09-01] MEDS: ZyrTEC TAB 10 MG PO SCH (20:54)
[2019-09-01] MEDS: TOPROL XL PO SCH (20:54)
[2019-09-02] MEDS: ZOVIRAX TOP SCH ×3 (01:54→18:41)
[2019-09-02] MEDS: TYLENOL 325 MG TAB PO PRN (04:26)
[2019-09-02] MEDS ORDERED: NS 500 ML IV 500 ML IV ONE (05:43)
[2019-09-02] MEDS: ZOSYN VIAL 4.5 GRAMS 4.5 G in NS 100 ML IV + SPIKE MINIBAG* 100 ML IV SCH ×3 (06:09→21:22)
[2019-09-02 06:42] LABS: BASOPHILS % (AUTO) 0.5 % (0.2-1.0); EOSINOPHILS # (AUTO) 0.5 x10^3/uL (0.0-0.2); EOSINOPHILS % (AUTO) 5.4 % (0.9-2.9); HEMATOCRIT 32.2 % (36.0-47.0); HEMOGLOBIN 10.9 g/dL (12.0-16.0); LYMPHOCYTES # (AUTO) 0.6 X10^3/uL (1.3-2.9); LYMPHOCYTES % (AUTO) 6.6 % (21.0-51.0); MEAN CORPUSCULAR HEMOGLOBIN 28.1 pg (27.0-34.0); MEAN CORPUSCULAR HGB CONC 33.8 g/dL (33.0-35.0); MEAN CORPUSCULAR VOLUME 83.2 fL (80.0-100.0); MEAN PLATELET VOLUME 6.4 fL (7.4-11.0); MONOCYTES # (AUTO) 0.3 x10^3/uL (0.3-0.8); MONOCYTES % (AUTO) 3.5 % (0.0-13.0); NEUTROPHILS # (AUTO) 7.7 x10^3/uL (2.2-4.8); PLATELET COUNT 596 X10^3/uL (150.0-450.0); RED BLOOD COUNT 3.87 X10^6/uL (3.5-5.4); RED CELL DISTRIBUTION WIDTH 13.5 % (11.6-16.5); WHITE BLOOD COUNT 9.2 X10^3/uL (3.6-10.0)
[2019-09-02 06:50] LABS: ALANINE AMINOTRANSFERASE 26 Units/L (12-78); ALBUMIN 2.4 g/dL (3.4-5.0); ALKALINE PHOSPHATASE 99 Units/L (46-116); ASPARTATE AMINO TRANSFERASE 35 Units/L (15-37); BLOOD UREA NITROGEN 11 mg/dL (7-18); CALCIUM 7.8 mg/dL (8.5-10.1); CHLORIDE 109 mmol/L (98-107); COR CA(FOR HYPOALB) 9.1 mg/dL (8.5-10.1); CREATININE 1.06 mg/dL (0.55-1.02); SODIUM 141 mmol/L (136-145); TOTAL PROTEIN 6.5 g/dL (6.4-8.2); eGFR NON BLACK RACES 59 (>60)
--- NOTE | 2019-09-02 07:46 | RAD ---
HISTORY: Shortness of breath Study: Chest AP portable Comparison: 09/01/2019 Findings: The heart is upper limits normal in size. The ivory are normal. The lungs are hypo inflated. Bilateral perihilar interstitial lung changes are present left greater than right unchanged from the prior examination. No pleural effusions are identified. The bony thorax is unremarkable. IMPRESSION: No change bilateral interstitial lung changes left greater than right Reported By:
[2019-09-02] MEDS: VSL#3 PO SCH (09:25)
[2019-09-02] MEDS: COZAAR PO SCH (09:25)
[2019-09-02] MEDS: MICRO K EXTEN CAP 10 MEQ PO PRN (09:26)
[2019-09-02] MEDS: ZANTAC PO SCH (09:26)
[2019-09-02] MEDS: MAGNESIUM SULFATE 1 GRAM/100 mL PREMIX 1 GM/100 ML BAG IV PRN ×2 (09:27→10:30)
[2019-09-02] MEDS: FLONASE NASAL SPRAY ENOSTRIL SCH (10:00)
[2019-09-02] MEDS: PROTONIX TAB 40 MG PO SCH (11:14)
[2019-09-02] MEDS: TAMIFLU PO SCH ×2 (11:14→20:03)
[2019-09-02] MEDS: TORADOL 30 MG VIAL IVP SCH ×2 (11:15→18:00)
[2019-09-02] MEDS: LOMOTIL PO PRN ×2 (11:18→21:36)
--- NOTE | 2019-09-02 17:12 | PCM.PROG ---
Progress Note - Progress Note for Day of Date of Exam: 09/02/19 - Subjective Subjective: IS BEING TREATED FOR PNEUMONIA, HYPOTENSION, DIZZINESS, AND ABDOMINAL PAIN. TODAY, SHE IS ALERT AND ORIENTED, LYING IN BED ON MORNING ROUNDS. SHE CONTINUES WITH COMPLAINTS OF SHORTNESS OF BREATH, COUGH, AND WEAKNESS. ON EXAMINATION, HEART IS REGULAR IN RATE AND RHYTHM. BILATERAL LUNGS ARE NOTED WITH DIMINISHED LUNG SOUNDS THROUGHOUT. ABDOMEN IS ROUND, SOFT, AND NON-TENDER WITH NORMAL BOWEL SOUNDS NOTED IN ALL QUADRANTS. HER VITALS THIS MORNING ARE: 103.1-110-20-95%-140/74. LABS WERE OBTAINED. ABNORMAL LAB VALUES INCLUDE THE FOLLOWING: HGB 10.9, HCT 32.2, PLT COUNT 596, CHLORIDE 109, CARBON DIOXIDE 19.0, CREATININE 1.06, GLUCOSE 100, CALCIUM 7.8, ALBUMIN 2.4. BLOOD CULTURES ARE PENDING. A CHEST XRAY WAS OBTAINED TODAY AND REVEALED: No change bilateral interstitial lung changes left greater than right. SHE IS CURRENTLY RECEIVING IV ZOSYN, RESPIRATORY TX, AND NS AT 150ML/HR. TODAY, WE WILL OBTAIN A FLU SWAB AND START TAMIFLU 75MG PO BID, TORADOL 30MG IV Q8H, AND PROTONIX 40MG PO DAILY. OTHERWISE, WE WILL CONTINUE WITH CURRENT PLAN OF CARE TODAY. WE PLAN TO FOLLOW UP WITH AM LABS AND CONTINUE TO MONITOR. - Past Medical Family Social History Past Med/Fam/Surg Hx: No changes since H&P Allergies: Allergies bacitracin Allergy (Verified 11/18/17 01:15) ciprofloxacin [From Cipro] Allergy (Verified 11/09/17 22:21) codeine Allergy (Verified 11/18/17 01:15) levofloxacin [From Levaquin] Allergy (Verified 11/18/17 01:15) montelukast [From Singulair] Allergy (Verified 11/18/17 01:15) neomycin Allergy (Verified 11/18/17 01:15) polymyxin B Allergy (Verified 11/18/17 01:15) sulfamethoxazole [From Bactrim] Allergy (Verified 11/18/17 01:15) trimethoprim [From Bactrim] Allergy (Verified 11/18/17 01:15) Wasp Venom Protein Allergy (Uncoded 11/18/17 01:15) - Review of Systems ROS: No change since H&P - Vital Signs and I&O's Vital Signs: Temperature 99.1 F Pulse Rate [Apical] 80 Pulse Rate [Standing] 64 Pulse Rate [Sitting] 83 Pulse Rate [Lying] 78 Pulse Rate 114 Respiratory Rate 20 Blood Pressure [Right Arm] 99/60 Blood Pressure [Left Arm] 134/89 Blood Pressure [Standing] 88/50 Blood Pressure [Sitting] 111/64 Blood Pressure [Lying] 105/61 Blood Pressure 144/88 O2 Sat by Pulse Oximetry 95 Intake and Output: Intake & Output 08/31/19 09/01/19 09/02/19 09/03/19 11:59 11:59 11:59 11:59 Intake Total 1120 / 1120 1570 / 1570 1040 / 1040 870 / 870 Output Total 1350 / 1350 Balance -230 / -230 1570 / 1570 1040 / 1040 870 / 870 - Physical Exam Oriented: Normal Eyes: Normal Ear: Normal Nose: Normal Throat: Normal Respiratory: Generalized, Diminished Cardiovascular: Normal : Normal Auscultation: Bowel Sounds: Normal Palpation: Normal Tenderness: Diffuse, Mild Skin: Normal Musculoskeletal: Normal Psychiatric: Normal Mood Description: Calm Affect: Normal Speech Pattern: Clear, Appropriate - Laboratory and Diagnostics Result Diagrams: 09/02/19 05:36 09/02/19 05:36 Labs: 08/27/19 07:44 Blood Blood Culture - Final 08/27/19 07:32 Blood Blood Culture - Final 08/25/19 14:20 Blood Blood Culture - Final 08/25/19 14:35 Blood Blood Culture - Final Laboratory WBC 9.2 X10^3/uL (3.6-10.0) 09/02/19 05:36 RBC 3.87 X10^6/uL (3.5-5.4) 09/02/19 05:36 Hgb 10.9 g/dL (12.0-16.0) L D 09/02/19 05:36 Hct 32.2 % (36.0-47.0) L 09/02/19 05:36 MCV 83.2 fL (80.0-100.0) 09/02/19 05:36 MCH 28.1 pg (27.0-34.0) 09/02/19 05:36 MCHC 33.8 g/dL (33.0-35.0) 09/02/19 05:36 RDW 13.5 % (11.6-16.5) 09/02/19 05:36 Plt Count 596 X10^3/uL (150.0-450.0) H 09/02/19 05:36 Plt Count Comment Increased (ADEQUATE) A 09/01/19 05:40 MPV 6.4 fL (7.4-11.0) L 09/02/19 05:36 Neut % (Auto) 84.0 % (42.0-75.0) H 09/02/19 05:36 Lymph % (Auto) 6.6 % (21.0-51.0) L 09/02/19 05:36 [place] % (Auto) 3.5 % (0.0-13.0) 09/02/19 05:36 Eos % (Auto) 5.4 % (0.9-2.9) H 09/02/19 05:36 Baso % (Auto) 0.5 % (0.2-1.0) 09/02/19 05:36 Neut # (Auto) 7.7 x10^3/uL (2.2-4.8) H 09/02/19 05:36 Lymph # (Auto) 0.6 X10^3/uL (1.3-2.9) L 09/02/19 05:36 [place] # (Auto) 0.3 x10^3/uL (0.3-0.8) 09/02/19 05:36 Eos # (Auto) 0.5 x10^3/uL (0.0-0.2) H 09/02/19 05:36 Baso # (Auto) 0.0 X10^3/uL (0.0-0.1) 09/02/19 05:36 Absolute Nucleated RBC 0.3 /100WBC 09/02/19 05:36 Total Counted 100 09/01/19 05:40 Neutrophils % (Manual) 88 % (39-76) H 09/01/19 05:40 Lymphocytes % (Manual) 7 % (13-43) L 09/01/19 05:40 Monocytes % (Manual) 3 % (4-9) L 09/01/19 05:40 Eosinophils % (Manual) 2 % (0-6) 09/01/19 05:40 Plt Morphology Comment Normal (NORMAL) 09/01/19 05:40 RBC Morphology Normal (NORMAL) 09/01/19 05:40 Sample Site Rra 08/27/19 10:29 ABG pH 7.470 (7.35-7.45) H 08/27/19 10:29 ABG pCO2 28.0 mmHg (35.0-45.0) L 08/27/19 10:29 ABG pO2 64.0 mmHg (80.0-100.0) L 08/27/19 10:29 ABG HCO3 20.4 mmol/L (22-26) L 08/27/19 10:29 ABG O2 Saturation 93.0 % (90-100) 08/27/19 10:29 ABG Base Excess -2.2 mmol/L (-2.0-2.0) L 08/27/19 10:29 Chon Test Pos 08/27/19 10:29 A-a Gradient 101.0 mmHg 08/27/19 10:29 FiO2 28.0 08/27/19 10:29 Blood Gas Comments Pt toll well eb 08/27/19 10:29 Sodium 141 mmol/L (136-145) 09/02/19 05:36 Corrected Sodium TNP 09/02/19 05:36 Potassium 3.7 mmol/L (3.5-5.1) 09/02/19 05:36 Chloride 109 mmol/L (98-107) H 09/02/19 05:36 Carbon Dioxide 19.0 mmol/L (21-32) L 09/02/19 05:36 BUN 11 mg/dL (7-18) 09/02/19 05:36 Creatinine 1.06 mg/dL (0.55-1.02) H 09/02/19 05:36 Est GFR (MDRD) Af Amer > 60 (>60) 09/02/19 05:36 Est GFR (MDRD) Non-Af 59 (>60) 09/02/19 05:36 Glucose 100 mg/dL (65-99) H 09/02/19 05:36 Lactic Acid 1.8 mmol/L (0.4-2.0) 08/27/19 07:32 Calcium 7.8 mg/dL (8.5-10.1) L 09/02/19 05:36 Corrected Calcium 9.1 mg/dL (8.5-10.1) 09/02/19 05:36 Magnesium 1.8 mg/dL (1.7-2.9) 09/02/19 05:36 Total Bilirubin 0.40 mg/dL (0.2-1.0) 09/02/19 05:36 AST 35 Units/L (15-37) 09/02/19 05:36 ALT 26 Units/L (12-78) 09/02/19 05:36 Alkaline Phosphatase 99 Units/L (46-116) 09/02/19 05:36 Creatine Kinase 26 Units/L (26-192) 08/26/19 05:45 CK-MB (CK-2) < 1.0 ng/mL (0-4.0) 08/26/19 05:45 CK/CKMB % Calc 3.9 % (<4) 08/26/19 05:45 Troponin I < 0.02 ng/mL (0-1.5) 08/26/19 05:45 C-Reactive Protein 45.40 mg/L (0-3.0) H 08/25/19 13:12 Total Protein 6.5 g/dL (6.4-8.2) 09/02/19 05:36 Albumin 2.4 g/dL (3.4-5.0) L 09/02/19 05:36 Globulin 4.1 g/dL (2.5-4.5) 09/02/19 05:36 Albumin/Globulin Ratio 0.6 Ratio (1.1-2.1) L 09/02/19 05:36 Amylase 77 Units/L (25-115) 08/25/19 13:12 Lipase 172 Units/L (73-393) 08/25/19 13:12 Specimen Type Clean catch urine 08/25/19 15:23 Urine Color Yellow (YELLOW) 08/25/19 15:23 Urine Appearance Clear (CLEAR) 08/25/19 15:23 Urine pH 6.0 (5.0 - 8.0) 08/25/19 15:23 Ur Specific [place] 1.020 (1.000-1.030) 08/25/19 15:23 Urine Protein 2+ (NEGATIVE) 08/25/19 15:23 Urine Glucose (UA) Negative (NEGATIVE) 08/25/19 15:23 Urine Ketones Negative (NEGATIVE) 08/25/19 15:23 Urine Occult Blood Negative (NEGATIVE) 08/25/19 15:23 Urine Nitrite Negative (NEGATIVE) 08/25/19 15:23 Urine Bilirubin Negative (NEGATIVE) 08/25/19 15:23 Urine Urobilinogen Normal (NORMAL) 08/25/19 15:23 Ur Leukocyte Esterase Negative (NEGATIVE) 08/25/19 15:23 Urine RBC None seen /HPF (0-3) 08/25/19 15:23 Urine WBC 0-2 /HPF (0-5) 08/25/19 15:23 Ur Squamous Epith Cells Few /HPF (NEGATIVE) 08/25/19 15:23 Amorphous Sediment 1+ /HPF (NEGATIVE) 08/25/19 15:23 Urine Bacteria Trace /HPF (NEGATIVE) 08/25/19 15:23 Ur Culture Indicated? No/not indicated 08/25/19 15:23 Stl C. diff Tox B Gene Negative (NEGATIVE) 08/30/19 18:50 Stl C. diff 027-NAP1-BI Negative (NEGATIVE) 08/30/19 18:50 Influenza Type A (PCR) Negative (NEGATIVE) 09/02/19 11:20 Influenza Type B (PCR) Negative (NEGATIVE) 09/02/19 11:20 - Plan (1) Pneumonia Status: Acute Qualifiers: Pneumonia type: due to unspecified organism Laterality: bilateral Lung location: upper lobe of lung Qualified Code(s): J18.9 - Pneumonia, unspecified organism Plan: IV ZOSYN, RESPIRATORY TX, CONTINUE TO MONITOR (2) Abdominal pain Status: Acute Qualifiers: Abdominal location: generalized Qualified Code(s): R10.84 - Generalized abdominal pain (3) Hypotension Status: Acute Qualifiers: Hypotension type: unspecified hypotension type Qualified Code(s): I95.9 - Hypotension, unspecified Plan: IV FLUIDS, CONTINUE TO MONITOR (4) Near syncope Status: Acute (5) Lymphadenopathy Status: Acute Plan: CONTINUE TO MONITOR
[2019-09-02] MEDS: ZyrTEC TAB 10 MG PO SCH (20:03)
[2019-09-02] MEDS: TOPROL XL PO SCH (20:04)
[2019-09-02] MEDS ORDERED: MILK OF MAGNESIA PO PRN (20:16)
[2019-09-03] MEDS: TORADOL 30 MG VIAL IVP SCH ×3 (01:23→17:57)
[2019-09-03] MEDS: ZOVIRAX TOP SCH ×3 (01:55→19:07)
[2019-09-03 05:48] LABS: BASOPHILS # (AUTO) 0.1 X10^3/uL (0.0-0.1); EOSINOPHILS # (AUTO) 0.6 x10^3/uL (0.0-0.2); EOSINOPHILS % (AUTO) 5.8 % (0.9-2.9); HEMATOCRIT 34.3 % (36.0-47.0); HEMOGLOBIN 11.5 g/dL (12.0-16.0); LYMPHOCYTES # (AUTO) 0.8 X10^3/uL (1.3-2.9); LYMPHOCYTES % (AUTO) 8.6 % (21.0-51.0); MEAN CORPUSCULAR HEMOGLOBIN 28.1 pg (27.0-34.0); MEAN CORPUSCULAR HGB CONC 33.7 g/dL (33.0-35.0); MEAN CORPUSCULAR VOLUME 83.5 fL (80.0-100.0); MEAN PLATELET VOLUME 6.2 fL (7.4-11.0); MONOCYTES # (AUTO) 0.2 x10^3/uL (0.3-0.8); MONOCYTES % (AUTO) 2.2 % (0.0-13.0); NEUTROPHILS % (AUTO) 82.4 % (42.0-75.0); PLATELET COUNT 504 X10^3/uL (150.0-450.0); RED CELL DISTRIBUTION WIDTH 13.8 % (11.6-16.5); WHITE BLOOD COUNT 9.6 X10^3/uL (3.6-10.0)
[2019-09-03 06:00] LABS: ALANINE AMINOTRANSFERASE 49 Units/L (12-78); ALBUMIN 2.5 g/dL (3.4-5.0); ALKALINE PHOSPHATASE 360 Units/L (46-116); ASPARTATE AMINO TRANSFERASE 107 Units/L (15-37); BLOOD UREA NITROGEN 12 mg/dL (7-18); CALCIUM 7.9 mg/dL (8.5-10.1); CHLORIDE 109 mmol/L (98-107); COR CA(FOR HYPOALB) 9.1 mg/dL (8.5-10.1); CREATININE 1.01 mg/dL (0.55-1.02); SODIUM 140 mmol/L (136-145); TOTAL PROTEIN 6.9 g/dL (6.4-8.2); eGFR NON BLACK RACES > 60 (>60)
[2019-09-03] MEDS: ZOSYN VIAL 4.5 GRAMS 4.5 G in NS 100 ML IV + SPIKE MINIBAG* 100 ML IV SCH ×3 (06:18→21:49)
--- NOTE | 2019-09-03 06:39 | RAD ---
HISTORY: Shortness of breath Study: Chest AP portable Comparison: 09/02/2019 Findings: The heart is upper limits normal in size. The lungs are hypo inflated. There has been interval development since the prior examination of bilateral perihilar alveolar filling superimposed on the previously described bilateral interstitial lung changes. This suggests interval development of edema which could be cardiogenic or noncardiogenic in origin. No pleural effusions are identified. The bony thorax is unremarkable. IMPRESSION: Interval development of bilateral perihilar alveolar filling superimposed on the interstitial lung changes described on the prior examination. Findings are suggestive of interval development of edema which could be cardiogenic or noncardiogenic in origin. Reported By:
[2019-09-03 07:58] LABS: ABG BASE EXCESS -3.6 mmol/L (-2.0-2.0)
[2019-09-03 07:59] LABS: ABG ALLEN TEST POS; ABG HCO3 17.9 mmol/L (22-26)
[2019-09-03] MEDS: TYLENOL 325 MG TAB PO PRN (08:00)
[2019-09-03 08:29] LABS: BILIRUBIN,URINE NEGATIVE (NEGATIVE); BLOOD/HEMOGLOBIN,URINE 2+ (NEGATIVE); GLUCOSE, URINE NEGATIVE (NEGATIVE); KETONES,URINE 1+ (NEGATIVE); LEUKOCYTE ESTERASE ,URINE 1+ (NEGATIVE); NITRITES,URINE NEGATIVE (NEGATIVE); PROTEIN,URINE 3+ (NEGATIVE); UROBILINOGEN,URINE NORMAL (NORMAL)
[2019-09-03 08:31] LABS: CKMB % 3.2 % (<4); CREATINE KINASE 31 Units/L (26-192); CREATINE KINASE MB < 1.0 ng/mL (0-4.0); TROPONIN I 0.05 ng/mL (0-1.5)
[2019-09-03 08:32] LABS: APPEARANCE,URINE HAZY (CLEAR); COLOR,URINE YELLOW (YELLOW)
[2019-09-03 08:35] LABS: BACTERIA,URINE NEGATIVE /HPF (NEGATIVE); MUCUS,URINE FEW /HPF (NEGATIVE); RBC,URINE 0-2 /HPF (0-3); SQUAMOUS EPITHELIAL CELL,UR NEGATIVE /HPF (NEGATIVE)
[2019-09-03] MEDS: VSL#3 PO SCH (10:20)
[2019-09-03] MEDS: COZAAR PO SCH (10:20)
[2019-09-03] MEDS: PROTONIX TAB 40 MG PO SCH (10:21)
[2019-09-03] MEDS: ZANTAC PO SCH (10:21)
[2019-09-03] MEDS: TAMIFLU PO SCH ×2 (10:21→21:49)
[2019-09-03] MEDS: FLONASE NASAL SPRAY ENOSTRIL SCH (10:25)
[2019-09-03] MEDS ORDERED: NS 100 ML IV 100 ML IV ONE ×2 (10:59→12:32)
[2019-09-03] MEDS: SOLU-Medrol 40 MG VIAL IVP SCH (11:05)
--- NOTE | 2019-09-03 16:56 | PCM.PROG ---
Progress Note - Progress Note for Day of Date of Exam: 09/03/19 - Subjective Subjective: IS BEING TREATED FOR PNEUMONIA, HYPOTENSION, DIZZINESS, AND ABDOMINAL PAIN. TODAY, SHE IS ALERT AND ORIENTED, LYING IN BED ON MORNING ROUNDS. SHE CONTINUES WITH COMPLAINTS OF DIARRHEA, SHORTNESS OF BREATH, COUGH, AND WEAKNESS. SHE CONTINUES TO SPIKE A TEMPERATURE THROUGHOUT THE NIGHT. ON EXAMINATION, HEART IS REGULAR IN RATE AND RHYTHM. BILATERAL LUNGS ARE NOTED WITH DIMINISHED LUNG SOUNDS THROUGHOUT. ABDOMEN IS ROUND, SOFT, AND NON-TENDER WITH NORMAL BOWEL SOUNDS NOTED IN ALL QUADRANTS. HER VITALS THIS MORNING ARE: 101.2-126-38-88%NC-167/78. LABS WERE OBTAINED. ABNORMAL LAB VALUES INCLUDE THE FOLLOWING: HGB 11.5, HCT 34.3, PLT COUNT 504, CHLORIDE 109, CALCIUM 7.9, AST 107, ALK PHOS 360, BNP 102, ALBUMIN 2.5. AN ABG WAS OBTAINED TODAY AND REVEALED: PH 7.500, PC02 23.0, P02 193.0, HC03 17.9, BASE EXCESS -3.6. BLOOD CULTURES ARE PENDING. A CHEST XRAY WAS OBTAINED TODAY AND REVEALED: Interval development of bilateral perihilar alveolar filling superimposed on the interstitial lung changes described on the prior examination. Findings are suggestive of interval development of edema which could be cardiogenic or noncardiogenic in origin. SHE IS CURRENTLY RECEIVING IV ZOSYN, RESPIRATORY TX, NS AT 150ML/HR, TAMIFLU 75MG PO BID, TORADOL 30MG IV Q8H, AND PROTONIX 40MG PO DAILY. TODAY, WE WILL CHECK STOOLS FOR C-DIFF, CHECK A BNP, AND CHEST CT WITH CONTRAST. WE WILL START SOLU- MEDROL 80MG IV Q8H AND WILL ADMINISTER LASIX 40MG IV X [address] OTHERWISE, WE WILL CONTINUE WITH CURRENT PLAN OF CARE TODAY. WE PLAN TO FOLLOW UP WITH AM LABS AND CONTINUE TO MONITOR. - Past Medical Family Social History Past Med/Fam/Surg Hx: No changes since H&P Allergies: Allergies bacitracin Allergy (Verified 11/18/17 01:15) ciprofloxacin [From Cipro] Allergy (Verified 11/09/17 22:21) codeine Allergy (Verified 11/18/17 01:15) levofloxacin [From Levaquin] Allergy (Verified 11/18/17 01:15) montelukast [From Singulair] Allergy (Verified 11/18/17 01:15) neomycin Allergy (Verified 11/18/17 01:15) polymyxin B Allergy (Verified 11/18/17 01:15) sulfamethoxazole [From Bactrim] Allergy (Verified 11/18/17 01:15) trimethoprim [From Bactrim] Allergy (Verified 11/18/17 01:15) Wasp Venom Protein Allergy (Uncoded 11/18/17 01:15) - Review of Systems ROS: No change since H&P - Vital Signs and I&O's Vital Signs: Temperature 97.7 F Pulse Rate [Apical] 93 Pulse Rate [Standing] 64 Pulse Rate [Sitting] 83 Pulse Rate [Lying] 78 Pulse Rate 101 Respiratory Rate 24 Blood Pressure [Right Arm] 120/80 Blood Pressure [Left Arm] 134/89 Blood Pressure [Standing] 88/50 Blood Pressure [Sitting] 111/64 Blood Pressure [Lying] 105/61 Blood Pressure 144/88 O2 Sat by Pulse Oximetry 92 Intake and Output: Intake & Output 09/01/19 09/02/19 09/03/19 09/04/19 11:59 11:59 11:59 11:59 Intake Total 1570 / 1570 1040 / 1040 2350 / 2350 440 / 440 Balance 1570 / 1570 1040 / 1040 2350 / 2350 440 / 440 - Physical Exam Oriented: Normal Eyes: Normal Ear: Normal Nose: Normal Throat: Normal Respiratory: Generalized, Diminished Cardiovascular: Normal : Normal Auscultation: Bowel Sounds: Normal Palpation: Normal Tenderness: Diffuse, Mild Skin: Normal Musculoskeletal: Normal Psychiatric: Normal Mood Description: Calm Affect: Normal Speech Pattern: Clear, Appropriate - Laboratory and Diagnostics Result Diagrams: 09/03/19 05:32 09/03/19 05:32 Labs: 08/27/19 07:44 Blood Blood Culture - Final 08/27/19 07:32 Blood Blood Culture - Final 08/25/19 14:20 Blood Blood Culture - Final 08/25/19 14:35 Blood Blood Culture - Final Laboratory WBC 9.6 X10^3/uL (3.6-10.0) 09/03/19 05:32 RBC 4.10 X10^6/uL (3.5-5.4) 09/03/19 05:32 Hgb 11.5 g/dL (12.0-16.0) L 09/03/19 05:32 Hct 34.3 % (36.0-47.0) L 09/03/19 05:32 MCV 83.5 fL (80.0-100.0) 09/03/19 05:32 MCH 28.1 pg (27.0-34.0) 09/03/19 05:32 MCHC 33.7 g/dL (33.0-35.0) 09/03/19 05:32 RDW 13.8 % (11.6-16.5) 09/03/19 05:32 Plt Count 504 X10^3/uL (150.0-450.0) H 09/03/19 05:32 Plt Count Comment Increased (ADEQUATE) A 09/01/19 05:40 MPV 6.2 fL (7.4-11.0) L 09/03/19 05:32 Neut % (Auto) 82.4 % (42.0-75.0) H 09/03/19 05:32 Lymph % (Auto) 8.6 % (21.0-51.0) L 09/03/19 05:32 [place] % (Auto) 2.2 % (0.0-13.0) 09/03/19 05:32 Eos % (Auto) 5.8 % (0.9-2.9) H 09/03/19 05:32 Baso % (Auto) 1.0 % (0.2-1.0) 09/03/19 05:32 Neut # (Auto) 8.0 x10^3/uL (2.2-4.8) H 09/03/19 05:32 Lymph # (Auto) 0.8 X10^3/uL (1.3-2.9) L 09/03/19 05:32 [place] # (Auto) 0.2 x10^3/uL (0.3-0.8) L 09/03/19 05:32 Eos # (Auto) 0.6 x10^3/uL (0.0-0.2) H 09/03/19 05:32 Baso # (Auto) 0.1 X10^3/uL (0.0-0.1) 09/03/19 05:32 Absolute Nucleated RBC 0.1 /100WBC 09/03/19 05:32 Total Counted 100 09/01/19 05:40 Neutrophils % (Manual) 88 % (39-76) H 09/01/19 05:40 Lymphocytes % (Manual) 7 % (13-43) L 09/01/19 05:40 Monocytes % (Manual) 3 % (4-9) L 09/01/19 05:40 Eosinophils % (Manual) 2 % (0-6) 09/01/19 05:40 Plt Morphology Comment Normal (NORMAL) 09/01/19 05:40 RBC Morphology Normal (NORMAL) 09/01/19 05:40 Sample Site Lr 09/03/19 07:50 ABG pH 7.500 (7.35-7.45) H 09/03/19 07:50 ABG pCO2 23.0 mmHg (35.0-45.0) L 09/03/19 07:50 ABG pO2 193.0 mmHg (80.0-100.0) H 09/03/19 07:50 ABG HCO3 17.9 mmol/L (22-26) L* 09/03/19 07:50 ABG O2 Saturation 100.0 % (90-100) 09/03/19 07:50 ABG Base Excess -3.6 mmol/L (-2.0-2.0) L 09/03/19 07:50 Chon Test Pos 09/03/19 07:50 A-a Gradient 491.0 mmHg 09/03/19 07:50 FiO2 100.0 09/03/19 07:50 Blood Gas Comments Pt marina well. cdn 09/03/19 07:50 Sodium 140 mmol/L (136-145) 09/03/19 05:32 Corrected Sodium TNP 09/03/19 05:32 Potassium 4.6 mmol/L (3.5-5.1) 09/03/19 05:32 Chloride 109 mmol/L (98-107) H 09/03/19 05:32 Carbon Dioxide 22.0 mmol/L (21-32) 09/03/19 05:32 BUN 12 mg/dL (7-18) 09/03/19 05:32 Creatinine 1.01 mg/dL (0.55-1.02) 09/03/19 05:32 Est GFR (MDRD) Af Amer > 60 (>60) 09/03/19 05:32 Est GFR (MDRD) Non-Af > 60 (>60) 09/03/19 05:32 Glucose 97 mg/dL (65-99) 09/03/19 05:32 Lactic Acid 1.7 mmol/L (0.4-2.0) 09/03/19 08:00 Calcium 7.9 mg/dL (8.5-10.1) L 09/03/19 05:32 Corrected Calcium 9.1 mg/dL (8.5-10.1) 09/03/19 05:32 Magnesium 1.8 mg/dL (1.7-2.9) 09/02/19 05:36 Total Bilirubin 0.70 mg/dL (0.2-1.0) 09/03/19 05:32 AST 107 Units/L (15-37) H 09/03/19 05:32 ALT 49 Units/L (12-78) 09/03/19 05:32 Alkaline Phosphatase 360 Units/L (46-116) H 09/03/19 05:32 Creatine Kinase 31 Units/L (26-192) 09/03/19 08:00 CK-MB (CK-2) < 1.0 ng/mL (0-4.0) 09/03/19 08:00 CK/CKMB % Calc 3.2 % (<4) 09/03/19 08:00 Troponin I 0.05 ng/mL (0-1.5) 09/03/19 08:00 C-Reactive Protein 45.40 mg/L (0-3.0) H 08/25/19 13:12 B-Natriuretic Peptide 102 pg/mL (0-79) H 09/03/19 05:32 Total Protein 6.9 g/dL (6.4-8.2) 09/03/19 05:32 Albumin 2.5 g/dL (3.4-5.0) L 09/03/19 05:32 Globulin 4.4 g/dL (2.5-4.5) 09/03/19 05:32 Albumin/Globulin Ratio 0.6 Ratio (1.1-2.1) L 09/03/19 05:32 Amylase 77 Units/L (25-115) 08/25/19 13:12 Lipase 172 Units/L (73-393) 08/25/19 13:12 Specimen Type Catherized urine 09/03/19 08:10 Urine Color Yellow (YELLOW) 09/03/19 08:10 Urine Appearance Hazy (CLEAR) 09/03/19 08:10 Urine pH 5.0 (5.0 - 8.0) 09/03/19 08:10 Ur Specific [place] 1.025 (1.000-1.030) 09/03/19 08:10 Urine Protein 3+ (NEGATIVE) 09/03/19 08:10 Urine Glucose (UA) Negative (NEGATIVE) 09/03/19 08:10 Urine Ketones 1+ (NEGATIVE) 09/03/19 08:10 Urine Occult Blood 2+ (NEGATIVE) 09/03/19 08:10 Urine Nitrite Negative (NEGATIVE) 09/03/19 08:10 Urine Bilirubin Negative (NEGATIVE) 09/03/19 08:10 Urine Urobilinogen Normal (NORMAL) 09/03/19 08:10 Ur Leukocyte Esterase 1+ (NEGATIVE) 09/03/19 08:10 Urine RBC 0-2 /HPF (0-3) 09/03/19 08:10 Urine WBC 0-2 /HPF (0-5) 09/03/19 08:10 Ur Squamous Epith Cells Negative /HPF (NEGATIVE) 09/03/19 08:10 Amorphous Sediment 1+ /HPF (NEGATIVE) 08/25/19 15:23 Urine Bacteria Negative /HPF (NEGATIVE) 09/03/19 08:10 Urine Mucus Few /HPF (NEGATIVE) 09/03/19 08:10 Ur Culture Indicated? No/not indicated 09/03/19 08:10 Stl C. diff Tox B Gene Negative (NEGATIVE) 09/03/19 12:55 Stl C. diff [id number]-[id number] Negative (NEGATIVE) 09/03/19 12:55 Influenza Type A (PCR) Negative (NEGATIVE) 09/02/19 11:20 Influenza Type B (PCR) Negative (NEGATIVE) 09/02/19 11:20 - Plan (1) Pneumonia Status: Acute Qualifiers: Pneumonia type: due to unspecified organism Laterality: bilateral Lung location: upper lobe of lung Qualified Code(s): J18.9 - Pneumonia, unspecified organism Plan: IV ZOSYN, RESPIRATORY TX, CHEST CT WITH CONTRAST, IV SOLU-MEDROL, LASIX 40MG IV X 1, CONTINUE TO MONITOR (2) Abdominal pain Status: Acute Qualifiers: Abdominal location: generalized Qualified Code(s): R10.84 - Generalized abdominal pain (3) Hypotension Status: Acute Qualifiers: Hypotension type: unspecified hypotension type Qualified Code(s): I95.9 - Hypotension, unspecified Plan: IV FLUIDS, CONTINUE TO MONITOR (4) Near syncope Status: Acute (5) Lymphadenopathy Status: Acute Plan: CONTINUE TO MONITOR
[2019-09-03] MEDS ORDERED: LASIX IVP ONE (17:00)
--- NOTE | 2019-09-03 17:18 | CT ---
CT chest with contrast Indication: Pneumonia, persistent cough and shortness of breath Technique: Helical CT images of the chest were obtained with IV contrast. Reformatted images in the coronal and sagittal planes were also generated for review. Comparison: Chest radiograph from same day Findings: The heart is enlarged without significant pericardial effusion. The thoracic aorta and proximal great vessels are normal in contour and caliber. Although not optimized for detection of PTE, no central or large segmental pulmonary arterial filling defects are identified. Central airways are patent. There are shotty mediastinal lymph nodes, none pathologically enlarged. No hilar adenopathy seen. There are diffuse ground-glass opacities bilaterally with minimal associated interlobular septal thickening. There is also a trace left pleural effusion. No pneumothorax. Limited images through the upper abdomen demonstrate no acute abnormality. There is moderate subcutaneous edema of the mid and upper left chest wall as well as small subcutaneous gas within the left supraclavicular region, which is only partially imaged. No drainable fluid collection is identified. Impression: Small left pleural effusion, cardiomegaly and diffuse bilateral ground-glass opacities with minimal interlobular septal thickening. Findings could be on the basis of severe pulmonary edema from CHF, multifocal pneumonia or developing ARDS. Clinical correlation as well as continued PA/lateral radiographic follow-up recommended. Nonspecific edema of the mid and upper left chest wall with small soft tissue gas within the left supraclavicular fossa. Findings are only partially imaged and could be related to recent instrumentation. Correlate clinically for signs of soft tissue infection/cellulitis. Reported By:
[2019-09-03] MEDS: ZyrTEC TAB 10 MG PO SCH (21:49)
[2019-09-03] MEDS: TOPROL XL PO SCH ×2 (21:49→23:30)
[2019-09-04] MEDS ORDERED: NS 500 ML IV 500 ML IV PRN (01:24)
[2019-09-04] MEDS ORDERED: NS 500 ML IV 500 ML IV ONE (01:28)
[2019-09-04] MEDS: TORADOL 30 MG VIAL IVP SCH ×2 (04:02→10:07)
[2019-09-04] MEDS: ZOVIRAX TOP SCH ×2 (04:03→10:07)
[2019-09-04] MEDS: PROCALAMINE 3 % 1,000 ML IV SCH (05:05)
[2019-09-04] MEDS: ZOSYN VIAL 4.5 GRAMS 4.5 G in NS 100 ML IV + SPIKE MINIBAG* 100 ML IV SCH ×3 (05:05→21:26)
[2019-09-04 06:11] LABS: BASOPHILS % (AUTO) 0.3 % (0.2-1.0); EOSINOPHILS % (AUTO) 0.1 % (0.9-2.9); HEMATOCRIT 33.9 % (36.0-47.0); HEMOGLOBIN 11.5 g/dL (12.0-16.0); LYMPHOCYTES # (AUTO) 0.8 X10^3/uL (1.3-2.9); LYMPHOCYTES % (AUTO) 7.7 % (21.0-51.0); MEAN CORPUSCULAR HGB CONC 33.8 g/dL (33.0-35.0); MEAN CORPUSCULAR VOLUME 82.8 fL (80.0-100.0); MEAN PLATELET VOLUME 6.8 fL (7.4-11.0); MONOCYTES # (AUTO) 0.3 x10^3/uL (0.3-0.8); MONOCYTES % (AUTO) 2.7 % (0.0-13.0); NEUTROPHILS # (AUTO) 9.1 x10^3/uL (2.2-4.8); NEUTROPHILS % (AUTO) 89.2 % (42.0-75.0); PLATELET COUNT 485 X10^3/uL (150.0-450.0); RED BLOOD COUNT 4.09 X10^6/uL (3.5-5.4); RED CELL DISTRIBUTION WIDTH 13.7 % (11.6-16.5); WHITE BLOOD COUNT 10.2 X10^3/uL (3.6-10.0)
[2019-09-04 06:23] LABS: ALANINE AMINOTRANSFERASE 28 Units/L (12-78); ALBUMIN 2.3 g/dL (3.4-5.0); ALKALINE PHOSPHATASE 198 Units/L (46-116); ASPARTATE AMINO TRANSFERASE 51 Units/L (15-37); BLOOD UREA NITROGEN 18 mg/dL (7-18); CALCIUM 8.4 mg/dL (8.5-10.1); CHLORIDE 110 mmol/L (98-107); COR CA(FOR HYPOALB) 9.8 mg/dL (8.5-10.1); CREATININE 0.95 mg/dL (0.55-1.02); SODIUM 145 mmol/L (136-145); TOTAL PROTEIN 6.6 g/dL (6.4-8.2); eGFR NON BLACK RACES > 60 (>60)
[2019-09-04] MEDS: COZAAR PO SCH (08:42)
[2019-09-04] MEDS: SOLU-Medrol 40 MG VIAL IVP SCH (08:42)
[2019-09-04] MEDS: TAMIFLU PO SCH ×2 (08:42→21:25)
[2019-09-04] MEDS: ZANTAC PO SCH (08:42)
[2019-09-04] MEDS: VSL#3 PO SCH (08:42)
[2019-09-04] MEDS: FLONASE NASAL SPRAY ENOSTRIL SCH (08:43)
[2019-09-04] MEDS: PROTONIX TAB 40 MG PO SCH (08:43)
[2019-09-04] MEDS ORDERED: PULMICORT NEB TX 0.5 MG NEB ONE (10:13)
[2019-09-04] MEDS: XOPENEX 1.25 MG/3 ML NEBULE NEB PRN (10:15)
[2019-09-04] MEDS: PULMICORT NEB TX 0.5 MG NEB SCH ×2 (10:15→20:32)
--- NOTE | 2019-09-04 10:54 | RAD ---
HISTORY: Pneumonia Study: Single-view chest Comparison: 09/03/2019 at 6:39 a.m. Findings: Trachea is midline. There is cardiomegaly. Although the examination is expiratory, there appears to be some improved aeration in bilateral perihilar foci of edema or pneumonia. No pleural fluid or pneumothorax is seen. Osseous structures are intact. IMPRESSION: Cardiomegaly. Slight interval improvement in aeration in bilateral perihilar foci of edema or pneumonia. Reported By:
[2019-09-04 11:41] LABS: ABG BASE EXCESS -3.4 mmol/L (-2.0-2.0); ABG HCO3 18.6 mmol/L (22-26)
[2019-09-04] MEDS: LASIX IVP SCH ×2 (12:03→21:25)
[2019-09-04] MEDS ORDERED: SALINE 3% 15 ML NEB TX NEB ONE (18:12)
[2019-09-04] MEDS: TOPROL XL PO SCH (21:25)
[2019-09-04] MEDS: ZyrTEC TAB 10 MG PO SCH (21:25)
--- NOTE | 2019-09-04 22:30 | PCM.PROG ---
Progress Note - Progress Note for Day of Date of Exam: 09/04/19 - Subjective Subjective: IS BEING TREATED FOR PNEUMONIA, HYPOTENSION, DIZZINESS, AND ABDOMINAL PAIN. TODAY, SHE IS ALERT AND ORIENTED, LYING IN BED ON MORNING ROUNDS. SHE CONTINUES WITH COMPLAINTS OF SHORTNESS OF BREATH, COUGH, AND WEAKNESS TODAY. SHE HAS BEE AFEBRILE THROUGHOUT THE NIGHT. ON EXAMINATION, HEART IS REGULAR IN RATE AND RHYTHM. BILATERAL LUNGS ARE NOTED WITH DIMINISHED LUNG SOUNDS THROUGHOUT. ABDOMEN IS ROUND, SOFT, AND NON-TENDER WITH NORMAL BOWEL SOUNDS NOTED IN ALL QUADRANTS. HER VITALS THIS MORNING ARE: 97.7-92-22-86%-135/79. LABS WERE OBTAINED. ABNORMAL LAB VALUES INCLUDE THE FOLLO WING: WBC 10.2, HGB 11.5, HCT 33.9, CHLORIDE 110, GLUCOSE 104, CALCIUM 8.4, AST 54, ALK PHOS 198, ALBUMIN 2.3. BLOOD CULTURES ARE PENDING. A CHEST CT WAS OBTAINED YESTERDAY AND REVEALED: Small left pleural effusion, cardiomegaly and diffuse bilateral ground-glass opacities with minimal interlobular septal thickening. Findings could be on the basis of severe pulmonary edema from CHF, multifocal pneumonia or developing ARDS. Clinical correlation as well as continued PA/lateral radiographic follow-up recommended. Nonspecific edema of the mid and upper left chest wall with small soft tissue gas within the left supraclavicular fossa. Findings are only partially imaged and could be related to recent instrumentation. Correlate clinically for signs of soft tissue infection/cellulitis. SHE IS CURRENTLY RECEIVING IV ZOSYN, RESPIRATORY TX, NS AT 150ML/HR, TAMIFLU 75MG PO BID, SOLU-MEDROL, TORADOL 30MG IV Q8H, AND PROTONIX 40MG PO DAILY. TODAY, WE WILL START LASIX 20MG IV BID AND ADD PULMICORT TO HER NEB TX. WE WILL REPEAT AN ABG. OTHERWISE, WE WILL CONTINUE WITH CURRENT PLAN OF CARE. WE PLAN TO FOLLOW UP WITH AM LABS AND CONTINUE TO MONITOR. - Past Medical Family Social History Past Med/Fam/Surg Hx: No changes since H&P Allergies: Allergies bacitracin Allergy (Verified 11/18/17 01:15) ciprofloxacin [From Cipro] Allergy (Verified 11/09/17 22:21) codeine Allergy (Verified 11/18/17 01:15) levofloxacin [From Levaquin] Allergy (Verified 11/18/17 01:15) montelukast [From Singulair] Allergy (Verified 11/18/17 01:15) neomycin Allergy (Verified 11/18/17 01:15) polymyxin B Allergy (Verified 11/18/17 01:15) sulfamethoxazole [From Bactrim] Allergy (Verified 11/18/17 01:15) trimethoprim [From Bactrim] Allergy (Verified 11/18/17 01:15) Wasp Venom Protein Allergy (Uncoded 11/18/17 01:15) - Review of Systems ROS: No change since H&P - Vital Signs and I&O's Vital Signs: Temperature 97.4 F Pulse Rate [Apical] 88 Pulse Rate [Standing] 64 Pulse Rate [Sitting] 83 Pulse Rate [Lying] 78 Pulse Rate 89 Respiratory Rate 28 Blood Pressure [Right Arm] 129/76 Blood Pressure [Left Arm] 134/89 Blood Pressure [Standing] 88/50 Blood Pressure [Sitting] 111/64 Blood Pressure [Lying] 105/61 Blood Pressure 144/88 O2 Sat by Pulse Oximetry 91 Intake and Output: Intake & Output 09/02/19 09/03/19 09/04/19 09/05/19 11:59 11:59 11:59 11:59 Intake Total 1040 / 1040 2350 / 2350 1630 / 1630 850 / 850 Output Total 1400 / 1400 500 / 500 Balance 1040 / 1040 2350 / 2350 230 / 230 350 / 350 - Physical Exam Oriented: Normal Eyes: Normal Ear: Normal Nose: Normal Throat: Normal Respiratory: Generalized, Diminished Cardiovascular: Normal : Normal Auscultation: Bowel Sounds: Normal Palpation: Normal Tenderness: Diffuse, Mild Skin: Normal Musculoskeletal: Normal Psychiatric: Normal Mood Description: Calm Affect: Normal Speech Pattern: Clear, Appropriate - Laboratory and Diagnostics Result Diagrams: 09/04/19 05:27 09/04/19 05:27 Labs: 09/03/19 08:10 Urine,Catheterized Urine Culture - Preliminary 08/27/19 07:44 Blood Blood Culture - Final 08/27/19 07:32 Blood Blood Culture - Final 08/25/19 14:20 Blood Blood Culture - Final 08/25/19 14:35 Blood Blood Culture - Final Laboratory WBC 10.2 X10^3/uL (3.6-10.0) H 09/04/19 05:27 RBC 4.09 X10^6/uL (3.5-5.4) 09/04/19 05:27 Hgb 11.5 g/dL (12.0-16.0) L 09/04/19 05:27 Hct 33.9 % (36.0-47.0) L 09/04/19 05:27 MCV 82.8 fL (80.0-100.0) 09/04/19 05:27 MCH 28.0 pg (27.0-34.0) 09/04/19 05:27 MCHC 33.8 g/dL (33.0-35.0) 09/04/19 05:27 RDW 13.7 % (11.6-16.5) 09/04/19 05:27 Plt Count 485 X10^3/uL (150.0-450.0) H 09/04/19 05:27 Plt Count Comment Increased (ADEQUATE) A 09/01/19 05:40 MPV 6.8 fL (7.4-11.0) L 09/04/19 05:27 Neut % (Auto) 89.2 % (42.0-75.0) H 09/04/19 05:27 Lymph % (Auto) 7.7 % (21.0-51.0) L 09/04/19 05:27 Johnson % (Auto) 2.7 % (0.0-13.0) 09/04/19 05:27 Eos % (Auto) 0.1 % (0.9-2.9) L 09/04/19 05:27 Baso % (Auto) 0.3 % (0.2-1.0) 09/04/19 05:27 Neut # (Auto) 9.1 x10^3/uL (2.2-4.8) H 09/04/19 05:27 Lymph # (Auto) 0.8 X10^3/uL (1.3-2.9) L 09/04/19 05:27 Johnson # (Auto) 0.3 x10^3/uL (0.3-0.8) 09/04/19 05:27 Eos # (Auto) 0.0 x10^3/uL (0.0-0.2) 09/04/19 05:27 Baso # (Auto) 0.0 X10^3/uL (0.0-0.1) 09/04/19 05:27 Absolute Nucleated RBC 0.1 /100WBC 09/04/19 05:27 Total Counted 100 09/01/19 05:40 Neutrophils % (Manual) 88 % (39-76) H 09/01/19 05:40 Lymphocytes % (Manual) 7 % (13-43) L 09/01/19 05:40 Monocytes % (Manual) 3 % (4-9) L 09/01/19 05:40 Eosinophils % (Manual) 2 % (0-6) 09/01/19 05:40 Plt Morphology Comment Normal (NORMAL) 09/01/19 05:40 RBC Morphology Normal (NORMAL) 09/01/19 05:40 Sample Site Right brachial 09/04/19 11:34 ABG pH 7.480 (7.35-7.45) H 09/04/19 11:34 ABG pCO2 25.0 mmHg (35.0-45.0) L 09/04/19 11:34 ABG pO2 58.0 mmHg (80.0-100.0) L 09/04/19 11:34 ABG HCO3 18.6 mmol/L (22-26) L 09/04/19 11:34 ABG O2 Saturation 92.0 % (90-100) 09/04/19 11:34 ABG Base Excess -3.4 mmol/L (-2.0-2.0) L 09/04/19 11:34 Chon Test Na 09/04/19 11:34 A-a Gradient 139.0 mmHg 09/04/19 11:34 FiO2 32.0 09/04/19 11:34 Blood Gas Comments [place] well aw 09/04/19 11:34 Sodium 145 mmol/L (136-145) 09/04/19 05:27 Corrected Sodium TNP 09/04/19 05:27 Potassium 4.1 mmol/L (3.5-5.1) 09/04/19 05:27 Chloride 110 mmol/L (98-107) H 09/04/19 05:27 Carbon Dioxide 23.0 mmol/L (21-32) 09/04/19 05:27 BUN 18 mg/dL (7-18) 09/04/19 05:27 Creatinine 0.95 mg/dL (0.55-1.02) 09/04/19 05:27 Est GFR (MDRD) Af Amer > 60 (>60) 09/04/19 05:27 Est GFR (MDRD) Non-Af > 60 (>60) 09/04/19 05:27 Glucose 104 mg/dL (65-99) H 09/04/19 05:27 Lactic Acid 1.7 mmol/L (0.4-2.0) 09/03/19 08:00 Calcium 8.4 mg/dL (8.5-10.1) L 09/04/19 05:27 Corrected Calcium 9.8 mg/dL (8.5-10.1) 09/04/19 05:27 Magnesium 1.8 mg/dL (1.7-2.9) 09/02/19 05:36 Total Bilirubin 0.30 mg/dL (0.2-1.0) 09/04/19 05:27 AST 51 Units/L (15-37) H 09/04/19 05:27 ALT 28 Units/L (12-78) 09/04/19 05:27 Alkaline Phosphatase 198 Units/L (46-116) H 09/04/19 05:27 Creatine Kinase 31 Units/L (26-192) 09/03/19 08:00 CK-MB (CK-2) < 1.0 ng/mL (0-4.0) 09/03/19 08:00 CK/CKMB % Calc 3.2 % (<4) 09/03/19 08:00 Troponin I 0.05 ng/mL (0-1.5) 09/03/19 08:00 C-Reactive Protein 45.40 mg/L (0-3.0) H 08/25/19 13:12 B-Natriuretic Peptide 102 pg/mL (0-79) H 09/03/19 05:32 Total Protein 6.6 g/dL (6.4-8.2) 09/04/19 05:27 Albumin 2.3 g/dL (3.4-5.0) L 09/04/19 05:27 Globulin 4.3 g/dL (2.5-4.5) 09/04/19 05:27 Albumin/Globulin Ratio 0.5 Ratio (1.1-2.1) L 09/04/19 05:27 Amylase 77 Units/L (25-115) 08/25/19 13:12 Lipase 172 Units/L (73-393) 08/25/19 13:12 Specimen Type Catherized urine 09/03/19 08:10 Urine Color Yellow (YELLOW) 09/03/19 08:10 Urine Appearance Hazy (CLEAR) 09/03/19 08:10 Urine pH 5.0 (5.0 - 8.0) 09/03/19 08:10 Ur Specific [place] 1.025 (1.000-1.030) 09/03/19 08:10 Urine Protein 3+ (NEGATIVE) 09/03/19 08:10 Urine Glucose (UA) Negative (NEGATIVE) 09/03/19 08:10 Urine Ketones 1+ (NEGATIVE) 09/03/19 08:10 Urine Occult Blood 2+ (NEGATIVE) 09/03/19 08:10 Urine Nitrite Negative (NEGATIVE) 09/03/19 08:10 Urine Bilirubin Negative (NEGATIVE) 09/03/19 08:10 Urine Urobilinogen Normal (NORMAL) 09/03/19 08:10 Ur Leukocyte Esterase 1+ (NEGATIVE) 09/03/19 08:10 Urine RBC 0-2 /HPF (0-3) 09/03/19 08:10 Urine WBC 0-2 /HPF (0-5) 09/03/19 08:10 Ur Squamous Epith Cells Negative /HPF (NEGATIVE) 09/03/19 08:10 Amorphous Sediment 1+ /HPF (NEGATIVE) 08/25/19 15:23 Urine Bacteria Negative /HPF (NEGATIVE) 09/03/19 08:10 Urine Mucus Few /HPF (NEGATIVE) 09/03/19 08:10 Ur Culture Indicated? No/not indicated 09/03/19 08:10 Stl C. diff Tox B Gene Negative (NEGATIVE) 09/03/19 12:55 Stl C. diff [id number] Negative (NEGATIVE) 09/03/19 12:55 Influenza Type A (PCR) Negative (NEGATIVE) 09/02/19 11:20 Influenza Type B (PCR) Negative (NEGATIVE) 09/02/19 11:20 - Plan (1) Pneumonia Status: Acute Qualifiers: Pneumonia type: due to unspecified organism Laterality: bilateral Lung location: upper lobe of lung Qualified Code(s): J18.9 - Pneumonia, unspecified organism Plan: IV ZOSYN, RESPIRATORY TX, IV SOLU-MEDROL, LASIX 20MG IV BID, CONTINUE TO MONITOR (2) Abdominal pain Status: Acute Qualifiers: Abdominal location: generalized Qualified Code(s): R10.84 - Generalized abdominal pain (3) Hypotension Status: Acute Qualifiers: Hypotension type: unspecified hypotension type Qualified Code(s): I95.9 - Hypotension, unspecified Plan: IV FLUIDS, CONTINUE TO MONITOR (4) Near syncope Status: Acute (5) Lymphadenopathy Status: Acute Plan: CONTINUE TO MONITOR
[2019-09-05] MEDS: ZOVIRAX TOP SCH ×2 (02:37→11:45)
[2019-09-05] MEDS: TORADOL 30 MG VIAL IVP SCH (03:22)
[2019-09-05] MEDS: ZOSYN VIAL 4.5 GRAMS 4.5 G in NS 100 ML IV + SPIKE MINIBAG* 100 ML IV SCH (05:06)
--- NOTE | 2019-09-05 06:03 | RAD ---
HISTORY: Follow-up pneumonia Study: Chest AP portable Comparison: 09/04/2019 Findings: The heart remains enlarged. Bilateral perihilar alveolar filling is again identified and is not significantly changed from the prior examination. This could be on the basis of cardiogenic or noncardiogenic edema or bilateral pneumonia. No pleural effusions are identified. The bony thorax is unremarkable. IMPRESSION: No significant change from the prior examination Reported By:
[2019-09-05 06:41] LABS: BASOPHILS % (AUTO) 0.3 % (0.2-1.0); EOSINOPHILS # (AUTO) 0.1 x10^3/uL (0.0-0.2); EOSINOPHILS % (AUTO) 0.8 % (0.9-2.9); HEMATOCRIT 31.5 % (36.0-47.0); HEMOGLOBIN 10.4 g/dL (12.0-16.0); LYMPHOCYTES # (AUTO) 0.7 X10^3/uL (1.3-2.9); LYMPHOCYTES % (AUTO) 5.1 % (21.0-51.0); MEAN CORPUSCULAR HEMOGLOBIN 27.7 pg (27.0-34.0); MEAN CORPUSCULAR HGB CONC 33.1 g/dL (33.0-35.0); MEAN CORPUSCULAR VOLUME 83.5 fL (80.0-100.0); MEAN PLATELET VOLUME 6.9 fL (7.4-11.0); MONOCYTES # (AUTO) 0.3 x10^3/uL (0.3-0.8); MONOCYTES % (AUTO) 2.4 % (0.0-13.0); NEUTROPHILS # (AUTO) 11.8 x10^3/uL (2.2-4.8); NEUTROPHILS % (AUTO) 91.4 % (42.0-75.0); PLATELET COUNT 491 X10^3/uL (150.0-450.0); RED BLOOD COUNT 3.78 X10^6/uL (3.5-5.4); RED CELL DISTRIBUTION WIDTH 13.7 % (11.6-16.5); WHITE BLOOD COUNT 12.9 X10^3/uL (3.6-10.0)
[2019-09-05 06:52] LABS: ALANINE AMINOTRANSFERASE 47 Units/L (12-78); ALBUMIN 2.2 g/dL (3.4-5.0); ALKALINE PHOSPHATASE 140 Units/L (46-116); ASPARTATE AMINO TRANSFERASE 66 Units/L (15-37); BLOOD UREA NITROGEN 20 mg/dL (7-18); CALCIUM 8.5 mg/dL (8.5-10.1); CARBON DIOXIDE 24.5 mmol/L (21-32); CHLORIDE 110 mmol/L (98-107); COR CA(FOR HYPOALB) 9.9 mg/dL (8.5-10.1); COR NA(FOR HYPERGLY) 147 mmol/L (136-145); CREATININE 1.21 mg/dL (0.55-1.02); SODIUM 146 mmol/L (136-145); TOTAL PROTEIN 6.4 g/dL (6.4-8.2); eGFR NON BLACK RACES 51 (>60)
[2019-09-05 07:07] LABS: PLATELET MORPHOLOGY COMMENT NORMAL (NORMAL)
[2019-09-05 07:39] LABS: ABG BASE EXCESS 3.2 mmol/L (-2.0-2.0); ABG HCO3 23.6 mmol/L (22-26)
[2019-09-05 07:40] LABS: ABG ALLEN TEST POS
[2019-09-05] MEDS: PULMICORT NEB TX 0.5 MG NEB SCH (07:55)
[2019-09-05] MEDS: XOPENEX 1.25 MG/3 ML NEBULE NEB PRN (07:55)
[2019-09-05 07:57] LABS: CREATINE KINASE 25 Units/L (26-192); CREATINE KINASE MB < 1.0 ng/mL (0-4.0); TROPONIN I < 0.02 ng/mL (0-1.5)
[2019-09-05] MEDS: VSL#3 PO SCH (09:14)
[2019-09-05] MEDS: SOLU-Medrol 40 MG VIAL IVP SCH (09:15)
[2019-09-05] MEDS: LASIX IVP SCH (09:15)
[2019-09-05] MEDS: COZAAR PO SCH (09:15)
[2019-09-05] MEDS: TAMIFLU PO SCH (09:15)
[2019-09-05] MEDS: PROTONIX TAB 40 MG PO SCH (09:15)
[2019-09-05] MEDS: ZANTAC PO SCH (09:15)
[2019-09-05] MEDS: FLONASE NASAL SPRAY ENOSTRIL SCH (09:28)
[2019-09-05 11:18] VITALS: BP 143/67
[2019-09-05] MEDS: LOMOTIL PO PRN (11:35)
[2019-09-05] MEDS ORDERED: TORADOL 30 MG VIAL IVP SCH (15:00)
[2019-09-05] MEDS ORDERED: TAMIFLU PO SCH (21:00)
== END 2019-09-05 12:49 | disposition home or self-care (01) | DRG 195 ==
LOC: ER 12:46 → ICU 12:46 → MED/SURG 08-28 14:45
PROVIDERS: ADMIT Internal Medicine; ATTEND Internal Medicine
DX: R06.02 Shortness of breath; J18.9 Pneumonia, unspecified organism; R59.0 Localized enlarged lymph nodes; I10 Essential (primary) hypertension; I95.89 Other hypotension; R94.5 Abnormal results of liver function studies; R79.82 Elevated C-reactive protein (CRP); R94.4 Abnormal results of kidney function studies; R10.84 Generalized abdominal pain; R26.89 Other abnormalities of gait and mobility; E04.2 Nontoxic multinodular goiter; R10.13 Epigastric pain; R55 Syncope and collapse
CPT/HCPCS: 36415; 36600; 70486; 70491; 71010; 71020; 71045; 71046; 71260; 74176; 76536; 80053; 81001; 82150; 82550; 82553; 82803; 83605; 83690; 83735; 83880; 84132; 84484; 85025; 86140; 87040; 87086; 87493; 87502; 93005; 94640; 94669; 96365; 96367; 96374; 97161; 99284; A4222; B5200; G9035; G0378; J0456; J0696; J1885; J1940; J2543; J2920; J3475; J3490; J7030; J7040; J7050; J7060; J7620; J7626